=== PATIENT | female | born 1950 | race Caucasian/White ===

== ENCOUNTER 2017-12-02 17:50 | Emergency (ER) | payer MEDICARE, SELFPAY ==
[2017-12-02 17:50] VITALS: BP 158/94; PULSE 85; RESP 20; TEMP 36.4; O2SAT 100; BMI 27.4
[2017-12-02 20:00] VITALS: BP 171/90; PULSE 72; RESP 14; O2SAT 98
--- NOTE | 2017-12-02 20:13 | ED.WEAKNESS ---
HPI - Weakness General Chief complaint: Weakness Stated complaint: WEAK AND UNABLE TO GET UPSTAIRS Time Seen by Provider: 12/02/17 19:48 Source: patient Mode of arrival: ambulatory Limitations: no limitations History of Present Illness HPI Narrative: Patient is a 67-year-old female. Just flew in from [place] to the local area and is living with friends. She states she moved to this area from [place] because she ?could not stand the [place] any longer ?up there. She has not have a primary care doctor in this area. At baseline she uses a walker at home and a cane. She states when she got to this area the house where she was staying head stairs and she had very difficult to getting into the house. She states that her lower extremities have become more weak over the past day. She came into the emergency department for evaluation. Related Data Allergies Allergy/AdvReac Type Severity Reaction Status Date / Time nalidixic acid [From NegGram] Allergy Verified 12/02/17 21:45 Penicillins Allergy Hives Verified 12/02/17 21:45 Sulfa (Sulfonamide Allergy Verified 12/02/17 21:45 Antibiotics) Review of Systems Constitutional Denies chills and Denies fever(s) ENT Ears, Nose, Mouth, and Throat: Denies dizziness and Denies disequilibrium Cardiovascular Denies chest pain and Denies dyspnea Respiratory Denies dyspnea Gastrointestinal Gastrointestinal: Denies abdominal pain, Denies nausea and Denies vomiting Genitourinary Denies dysuria Musculoskeletal Denies numbness Comments: Bilateral lower extremity with left greater than right weakness Integumentary/Breasts Denies lesions and Denies rash Neurologic Denies dizziness, Denies focal weakness, Denies numbness and Denies disequilibrium Hematologic/Lymphatic Denies easy bleeding and Denies easy bruising [facility] Medical History Healthy adult (Acute) Surgical History No pertinent past surgical history (Acute) Social History Smoking Status: Never smoker Exam Initial Vital Signs Initial Vital Signs: Vital Signs Temperature 97.5 F L 12/02/17 17:50 Pulse Rate 85 12/02/17 17:50 Respiratory Rate 20 12/02/17 17:50 Blood Pressure 158/94 H 12/02/17 17:50 Pulse Oximetry 100 12/02/17 17:50 Const General: cooperative, comfortable, well developed, well groomed and No acute distress Orientation: alert, awake and oriented x3 HENMT Head: normal to inspection and normocephalic Resp Effort & Inspection: normal respiratory effort Auscultation: clear to auscultation bilaterally Cardio Rate: regular rate Rhythm: regular rhythm Heart Sounds: no murmurs Pulses: radial pulses present GI Inspection: normal to inspection and non-distended Palpation: soft, No firm and No tender Back/Spine/Pelvis Back: normal to inspection and No CVA tenderness Skin Lesions: no lesions Rashes: no rashes Neuro General: alert, awake and oriented x3 Cognition: normal cognition Speech: speech normal Sensory Exam: no sensory deficits noted Extrem General: normal to inspection and full ROM Other: Left ankle swollen however the patient states this is not new Psych Appearance: grossly normal and well kempt Course Orders Ordered: ED Orders 12/02/17 20:14 EKG-12 Lead Stat 12/02/17 20:52 B Type Natriuretic Peptide Stat Basic Metabolic Panel Stat Complete Blood Count AUTO DIFF Stat Troponin I Stat Discontinued Medications Acetaminophen (Tylenol) 650 mg PO NOW ONE Stop: 12/02/17 21:46 Last Admin: 12/02/17 22:04 Dose: 650 mg Potassium Chloride (Potassium Chloride) 40 meq PO NOW ONE Stop: 12/02/17 21:23 Last Admin: 12/02/17 21:36 Dose: 40 meq Vital Signs - 8 hr 12/02/17 20:00 12/02/17 21:05 Pulse Rate 72 89 Respiratory Rate 14 18 Blood Pressure [Right Arm] 171/90 H 188/94 H Pulse Oximetry 98 99 MDM - Weakness Lab Data Attestation: I reviewed the patient's lab results. Result diagrams: 12/02/17 20:52 12/02/17 20:52 Lab Results 12/02/17 12/02/17 Range/Units 20:52 20:52 WBC 3.8 L (4.5-11.0) X10^3/uL RBC 4.10 (4.0-5.2) X10^6/uL Hgb 13.8 (12.0-16.0) g/dL Hct 39.2 (36-46) % MCV 95.7 (80-100) fL MCH 33.7 (26-34) PG MCHC 35.3 (30-36) % RDW 15.2 H (11.6-14.8) % Plt Count 214 (150-400) X10^3/uL Neut % (Auto) 57.1 (50-75) % Lymph % (Auto) 36.4 (25-40) % Daniels % (Auto) 5.8 (3-14) % Eos % (Auto) 0.3 L (2-4) % Baso % (Auto) 0.4 (0-2) % Neut # (Auto) 2200 L (5735-5530) /uL Sodium 140 (137-145) mmol/L Potassium 2.8 L (3.4-5.1) mmol/L Chloride 97 L (98-107) mmol/L Carbon Dioxide 33 H (22-32) mmol/L BUN 15 (7-17) mg/dL Creatinine 0.50 L (0.52-1.04) mg/dL Estimated GFR > 60.0 (>60) mL/min BUN/Creatinine Ratio 30.0 H (6-22) Glucose 241 H (80-110) mg/dL Calcium 10.5 H (8.4-10.2) mg/dL Troponin I < 0.012 (0.01-0.034) ng/mL B-Natriuretic Peptide 36.0 (<100) ECG Data Attestation: I personally reviewed and interpreted this ECG as follows: Prior ECG tracings: not available for review Interpretation: Sinus rhythm Ventricular rate is 72 Normal axis Normal QRS Normal QTC No ST T wave changes MDM Narrative Medical decision making narrative: Patient was mildly hypokalemic she was given oral potassium here in the emergency department. Patient was mildly more weak in the left lower extremity compared to the right. At baseline she states she uses a walker at home. She was able to stand at bedside and take a couple steps with assistance. EKG is unremarkable. Labs unremarkable except for the hypokalemic which was replaced here in the ER. I do not have a reason to admit the patient to the hospital. No emergent condition was found. Informed the patient that just because she could not climb steps to get into the house where she was staying was not a reason to admit her to the hospital. She was given resources regarding social resources in the local area. Patient seemed unhappy about this decision stating that she had no place to stay. She states that the individuals that she was staying with told her that she could not stay there anymore because there was concern about her climbing the stairs. Again I informed her that this was not a reason that I could admit her to the hospital. Patient expressed understanding. She did leave the emergency department by taxi. She was told that she could return to the emergency department if she needed to. Discharge Plan Departure Patient Disposition: Home Clinical Impression: Weakness, Acute hypokalemia Discharge Date/Time: 12/03/17 00:10 Interventions: ED Discharge Assessment Last Done: 12/03/17 00:09 Instructions: DI for Hypokalemia, DI for Muscle Weakness Activity Restrictions/Additional Instructions: No emergent condition was found on your workup today. Unfortunately we do not have a reason to admit you to the hospital. A message was left for our social workers here at the hospital to call you on Monday to help with your living situation. Return to the emergency department for any new or worsening symptoms
--- NOTE | 2017-12-02 20:16 | PC.NURSE ---
Pt has chronic lower leg neuropathy. Hx of diabetes, type 2. she recently moved here from [place] and is staying with friends, but she is unable to get into and out of her house due to steps. States her friends are too weak to help her. It is both painful and difficult due to weakness to ambulate. Pain is at baseline level, weakness is worse today. Denies other symptoms.
[2017-12-02 21:04] LABS: Add Manual Diff / Slide Review NO; Basophils Percent Auto 0.4 % (0-2); Eosinophils Percent Auto 0.3 % (2-4); Hematocrit 39.2 % (36-46); Hemoglobin 13.8 g/dL (12.0-16.0); Lymphocytes Percent Auto 36.4 % (25-40); Mean Corpuscular HGB Conc 35.3 % (30-36); Mean Corpuscular Hemoglobin 33.7 PG (26-34); Mean Corpuscular Volume 95.7 fL (80-100); Monocytes Percent Auto 5.8 % (3-14); Neutrophils Absolute Auto 2200 /uL (3000-5900); Neutrophils Percent Auto 57.1 % (50-75); Platelet Count 214 X10^3/uL (150-400); Red Cell Distribution Width 15.2 % (11.6-14.8); White Blood Cell Count 3.8 X10^3/uL (4.5-11.0)
[2017-12-02 21:05] VITALS: BP 188/94; PULSE 89; RESP 18; O2SAT 99
[2017-12-02 21:10] LABS: Blood Urea Nitrogen 15 mg/dL (7-17); Calcium 10.5 mg/dL (8.4-10.2); Carbon Dioxide 33 mmol/L (22-32); Chloride 97 mmol/L (98-107); Estimated Glomerular Filt Rate > 60.0 mL/min (>60); Glucose 241 mg/dL (80-110); HEMOLYSIS < 15 (0-50); Potassium 2.8 mmol/L (3.4-5.1); Sodium 140 mmol/L (137-145)
[2017-12-02 21:32] LABS: Troponin I < 0.012 ng/mL (0.01-0.034)
[2017-12-02] MEDS: POTASSIUM CHLORIDE 20 MEQ/15 ML UDC 40 MEQ PO (21:36)
[2017-12-02] MEDS: ACETAMINOPHEN 325 MG TABLET 650 MG PO (22:04)
--- NOTE | 2017-12-03 00:06 | PC.NURSE ---
asked to mildred pt. gave paperwork, she signed, stated we needed to provide a ride for her, her friends denied a picking crew supervisor for her. she states she has no money, just moved here from [place]. senior resource booklet given to her, room very messy from her eating and drinking in the room, she wanted extra diapers and boiler cleaner for her. she states if she gets to the home she is staying at she has friends that are there and her car is there as well. taxi ride to [facility] for her/ hospital to pay to assist her discharge.
--- NOTE | 2017-12-15 15:25 | CM.SWNOTE ---
ED ERGONOMIC SPECIALIST Note: SUPERVISOR COATING received a note and facesheet in my box requesting that I call this pt. There evidently was a concern that pt might benefit from additional resources as she was low-income and in need of housing. I reviewed chart and called pt, prepared to provide her with a list of services in [facility] that might be of help, but there was no answer. Left a message on VM identifying who I was and that if I could be of help to her, to call the Emergency Room on or Monday afternoon. If I do not hear back, I will keep the information in my mail box and call her again next week. Thank you Jessica Mattson SUPERVISOR COATING
--- NOTE | 2017-12-20 14:44 | CM.SWNOTE ---
Addendum entered by DAVON Box 12/20/17 15:45: Pt returned call from ED WEIGHT CALLER today. She stated that [place] [address] [place] Reviewed a variety of sr. social media & mobile manager, but pt is aware of all and has been in touch with them. [facility] is not an option as pt is unable to navigate stairs. She is workign with a SW from [facility] and another person at [facility] are trying to help her to find housing. Pt is able to get a hot meal through [facility] and a brown bag daily through another program so gets at least 2 meals per day. Pt seems to be well connected at this time and there were no other options that ED WEIGHT CALLER had to offer. Pt was appreciative of the outreach call. Thank you LUCA Box Original Note: ED WEIGHT CALLER Tried a second time to contact pt to see if I could be of help. A message was left last week with my name and contact information. I had been asked to contact her to see if she was in need of additional resources. Will try one more time this week. LUCA Box
== END 2017-12-03 00:10 | disposition home or self-care (01) ==
PROVIDERS: Emergency Provider Emergency Medicine
DX: E87.6 Hypokalemia (principal); R53.1 Weakness
CPT/HCPCS: 36591; 80048; 83880; 84484; 85025; 93005; 99282; 99284

== ENCOUNTER → 2018-01-19 07:11 | Outpatient (REF) | payer SELFPAY ==
[2018-01-19 08:13] LABS: Add Manual Diff / Slide Review NO; Basophils Percent Auto 0.5 % (0-2); Eosinophils Percent Auto 0.5 % (2-4); Hematocrit 37.8 % (36-46); Lymphocytes Percent Auto 44.9 % (25-40); Mean Corpuscular HGB Conc 34.4 % (30-36); Mean Corpuscular Hemoglobin 32.7 PG (26-34); Mean Corpuscular Volume 95.1 fL (80-100); Monocytes Percent Auto 5.6 % (3-14); Neutrophils Absolute Auto 1500 /uL (3000-5900); Neutrophils Percent Auto 48.5 % (50-75); Platelet Count 217 X10^3/uL (150-400); Red Blood Cell Count 3.98 X10^6/uL (4.0-5.2); Red Cell Distribution Width 14.6 % (11.6-14.8)
== END ==
LOC: LAB 07:11
PROVIDERS: Visit Provider Hospitalist
DX: D70.9 Neutropenia, unspecified (principal)
CPT/HCPCS: 36415; 85025

== ENCOUNTER → 2018-02-23 13:03 | Outpatient (CLI) | payer MEDICARE, MEDICAID, SELFPAY ==
--- NOTE | 2018-02-23 | DI.MRI.S_ITS ---
PROCEDURE: MR HEAD/BRAIN WO/W CON INDICATIONS: Weakness TECHNIQUE: Noncontrast axial T1 spin echo, axial T2 fast spin echo, sagittal and axial FLAIR, coronal T2 fast spin echo, axial gradient echo, axial diffusion and ADC through the brain. After the administration of contrast, axial and coronal T1 spin echo with fat saturation through the brain. COMPARISON: [facility], MR, MR LUMBAR SPINE WO/W CON, 02/23/2018, 13:31. [facility], MR, MR THORACIC SPINE WO/W CON, 02/23/2018, 13:31. [facility], MR, MR CERVICAL SPINE WO/W CON, 02/23/2018, 13:31. FINDINGS: Image quality: Diagnostic, with note made of motion artifact. CSF spaces: Basal cisterns are patent. No extra-axial fluid collections. Ventricles are normal in size and shape. Brain: No midline shift. No intracranial bleeds or masses. No abnormal intracranial enhancement. There is cerebral volume loss for age. There is periventricular white matter chronic small vessel ischemic change. The brainstem appears normal. Diffusion-weighted images demonstrate no acute ischemic insults. No chronic ischemic insults. Normal intravascular flow voids are present. Skull and face: Calvarial marrow is normal in signal. Orbits appear normal. Sinuses: No significant paranasal sinus abnormality is seen. Of IMPRESSION: No findings of acute or subacute infarction can be seen. No masses or abnormal enhancement can be seen. Note is made of age-appropriate brain parenchymal volume loss and chronic small vessel ischemic changes. Dictated by: Kade Means M.D. on 02/23/2018 at 15:00 Approved by: Kade Means M.D. on 02/23/2018 at 15:01
--- NOTE | 2018-02-23 | DI.MRI.S_ITS ---
PROCEDURE: MR LUMBAR SPINE WO/W CON INDICATIONS: Weakness TECHNIQUE: Noncontrast sagittal T1 spin echo and T2 fast spin echo, sagittal STIR, axial T1 and T2 fast spin echo through the lumbar spine. In cases with scoliosis, additional coronal T2 fast spin echo may be performed. After the administration of contrast, sagittal and axial T1 spin echo with fat saturation through the lumbar spine. COMPARISON: [facility], MR, MR HEAD/BRAIN WO/W CON, 02/23/2018, 13:31. [facility], MR, MR THORACIC SPINE WO/W CON, 02/23/2018, 13:31. [facility], MR, MR CERVICAL SPINE WO/W CON, 02/23/2018, 13:31. FINDINGS: Image quality: This examination is limited by involuntary motion artifact. Alignment and curvature: Levoconvex lumbar scoliotic curvature is seen. Marrow: Marrow is of normal overall signal. No acute vertebral body compression fractures. No suspicious marrow enhancement. Spinal cord: Conus medullaris terminates at the L1 level. Visualized spinal cord demonstrates normal signal, without suspicious enhancement. Paraspinous soft tissues: No paravertebral masses or abnormal enhancement. T12-L1: Normal appearance. L1-L2: Normal appearance. L2-L3: No significant abnormality is seen. L3-L4: Mild loss of disc height is seen. Loss of disc signal is seen. Mild generalized disc bulge is seen. Mild facet joint hypertrophy is seen. There is mild right-sided and no significant left-sided neural foraminal narrowing seen. No significant central canal narrowing is seen. L4-L5: The disc height is well-preserved. Loss of disc signal is seen at this level. Moderate disc bulge is seen, which is eccentric to the right. Mild bilateral neural foraminal narrowing is seen at this level. Moderate facet joint hypertrophy is seen. Mild to moderate central canal narrowing is seen. L5-S1: The disc height is well-preserved. Loss of disc signal is seen at this level. Mild generalized disc bulge is seen. Moderate facet joint hypertrophy is seen. No significant neural foraminal or central canal narrowing can be seen. IMPRESSION: Lower lumbar spine degenerative changes are seen. No abnormal enhancement can be seen. Levoconvex lumbar scoliotic curvature. Dictated by: Kade Means M.D. on 02/23/2018 at 15:12 Approved by: Kade Means M.D. on 02/23/2018 at 15:16
--- NOTE | 2018-02-23 | DI.MRI.S_ITS ---
PROCEDURE: MR CERVICAL SPINE WO/W CON INDICATIONS: Weakness TECHNIQUE: Noncontrast sagittal T1 spin echo and T2 fast spin echo, sagittal STIR, foraminal oblique sagittal T2 fast spin echo, axial gradient echo or T2 fast spin echo through the cervical spine. After the administration of contrast, axial and sagittal T1 spin echo with fat saturation through the cervical spine. COMPARISON: [facility], MR, MR LUMBAR SPINE WO/W CON, 02/23/2018, 13:31. [facility], MR, MR THORACIC SPINE WO/W CON, 02/23/2018, 13:31. [facility], MR, MR HEAD/BRAIN WO/W CON, 02/23/2018, 13:31. FINDINGS: Image quality: This examination is limited by involuntary motion artifact. Alignment and curvature: Mild grade 1 anterolisthesis is seen at the C7-T1 level. Marrow: Marrow is normal in overall signal, without suspicious enhancement. Spinal cord: Visualized spinal cord has normal size and signal. No cerebellar tonsillar herniation. No abnormal intramedullary enhancement. Paraspinous soft tissues: No paravertebral masses or suspicious enhancement. C2-3: The disc height is well-preserved. Loss of disc signal is seen at this level. Mild to moderate disc osteophyte complex is seen. [id number] bilateral neural foraminal narrowing is seen. There is moderate left-sided and mild right-sided neural foraminal narrowing seen. Minimal to mild central canal narrowing is seen. C3-4: The disc height is well-preserved. Loss of disc signal is seen at this level. Mild to moderate disc osteophyte complex is seen, which is eccentric to the left. There is mild right-sided and moderate left-sided facet hypertrophy seen. There is moderate right-sided and moderate to severe left-sided neural foraminal narrowing. Moderate central canal narrowing is seen. C4-5: Moderate loss of disc height and disc signal are seen. Moderate disc osteophyte complex is seen. There is mild right-sided and prominent left-sided facet hypertrophy seen. There is moderate to severe bilateral neural foraminal narrowing seen at this level. At least moderate central canal narrowing is seen, with associated mass effect upon the ventral spinal cord. C5-6: At least moderate loss of disc height is seen. Moderate to prominent disc osteophyte complex is seen, which is eccentric to the right. Uncovertebral joint hypertrophy is seen at this level. Mild to moderate facet hypertrophy is seen. There is moderate to severe bilateral neural foraminal narrowing seen, right worse than left. Moderate to severe central canal narrowing is seen, with associated mass effect upon the spinal cord ventrally. C6-7: The disc height is well-preserved. Loss of disc signal is seen at this level. Mild to moderate disc osteophyte complex is seen. There is moderate right-sided and mild to moderate left-sided neural foraminal narrowing seen. Mild central canal narrowing is seen. C7-T1: Mild grade 1 anterolisthesis is seen at this level. Mild to moderate loss of disc height and disc signal are seen. Moderate disc bulge is seen, which is eccentric to the right. There is moderate to severe bilateral neural foraminal narrowing seen. Mild central canal narrowing is seen. IMPRESSION: Multiple levels of cervical spine degenerative change are seen, which are overall most prominent at the C5-C6 level. No abnormal enhancement can be seen. Dictated by: Kade Means M.D. on 02/23/2018 at 15:02 Approved by: Kade Means M.D. on 02/23/2018 at 15:07
--- NOTE | 2018-02-23 | DI.MRI.S_ITS ---
PROCEDURE: MR THORACIC SPINE WO/W CON INDICATIONS: Weakness TECHNIQUE: Noncontrast sagittal T1 spin echo and T2 fast spin echo, sagittal STIR, axial T1 and T2 fast spin echo through the thoracic spine. After the administration of contrast, axial and sagittal T1 spin echo with fat saturation through the thoracic spine. COMPARISON: [facility], MR, MR HEAD/BRAIN WO/W CON, 02/23/2018, 13:31. [facility], MR, MR LUMBAR SPINE WO/W CON, 02/23/2018, 13:31. [facility], MR, MR CERVICAL SPINE WO/W CON, 02/23/2018, 13:31. FINDINGS: Image quality: This examination is limited by involuntary motion artifact. Alignment and curvature: S-shaped scoliotic curvature is seen. Marrow: Marrow is of normal overall signal. No acute vertebral body compression fractures. Spinal cord: Visualized spinal cord is of normal signal and size, without abnormal enhancement. Paraspinous soft tissues: No paravertebral masses or abnormal enhancement. Miscellaneous: Mild degenerative changes are seen, particularly involving the mid thoracic spine, with mild loss of disc height and endplate irregularity. No significant level of neural foraminal or central canal narrowing can be seen. No abnormal enhancement. IMPRESSION: S-shaped scoliosis. Age-appropriate degenerative changes. No significant level of central canal or neural foraminal narrowing can be seen. No abnormal enhancement. Dictated by: Kade Means M.D. on 02/23/2018 at 15:10 Approved by: Kade Means M.D. on 02/23/2018 at 15:12
== END ==
PROVIDERS: Visit Provider Nurse Practitioner Family
DX: R53.1 Weakness (principal); M47.812 Spondylosis without myelopathy or radiculopathy, cervical region; M47.814 Spondylosis without myelopathy or radiculopathy, thoracic region; M47.816 Spondylosis without myelopathy or radiculopathy, lumbar region; M41.9 Scoliosis, unspecified; E11.40 Type 2 diabetes mellitus with diabetic neuropathy, unspecified; H53.40 Unspecified visual field defects; R29.898 Other symptoms and signs involving the musculoskeletal system; L29.8 Other pruritus; I10 Essential (primary) hypertension; E87.6 Hypokalemia
CPT/HCPCS: 70553; 72156; 72157; 72158; A9579; Q9967

== ENCOUNTER → 2018-03-23 07:45 | Outpatient (REF) | payer MEDICARE, SELFPAY ==
[2018-03-23 08:56] LABS: Hemoglobin A1C% w Est Avg Glu 7.1 % (4.0-6.0)
== END ==
LOC: LAB 07:45
PROVIDERS: Visit Provider Nurse Practitioner Family
DX: N39.0 Urinary tract infection, site not specified (principal)
CPT/HCPCS: 36415; 83036

== ENCOUNTER → 2018-04-27 10:36 | Outpatient (REF) | payer MEDICARE, SELFPAY ==
[2018-04-27 10:50] LABS: Alanine Aminotransferase 25 IU/L (9-52); Albumin 4.2 g/dL (3.5-5.0); Albumin Globulin Ratio 1.6 (1.0-2.8); Alkaline Phosphatase 63 U/L (38-126); Aspartate Aminotransferase 21 IU/L (14-36); Bilirubin Total 1.6 mg/dL (0.2-1.3); Blood Urea Nitrogen 11 mg/dL (7-17); Calcium 10.7 mg/dL (8.4-10.2); Carbon Dioxide 24 mmol/L (22-32); Chloride 98 mmol/L (98-107); Estimated Glomerular Filt Rate > 60.0 mL/min (>60); Globulin 2.7 g/dL (1.7-4.1); Glucose 225 mg/dL (80-110); HEMOLYSIS < 15 (0-50); Potassium 3.8 mmol/L (3.4-5.1); Sodium 135 mmol/L (137-145); Total Protein 6.9 g/dL (6.3-8.2)
[2018-04-27 10:53] LABS: Add Manual Diff / Slide Review NO; Basophils Absolute Auto 0 /uL (0-100); Basophils Percent Auto 0.4 % (0-2); Eosinophils Absolute Auto 0 /uL (0-450); Eosinophils Percent Auto 0.2 % (2-4); Hematocrit 41.8 % (36-46); Hemoglobin 14.5 g/dL (12.0-16.0); Lymphocytes Absolute Auto 1400 /uL (1100-4500); Lymphocytes Percent Auto 31.9 % (25-40); Mean Corpuscular HGB Conc 34.7 % (30-36); Mean Corpuscular Volume 95.1 fL (80-100); Monocytes Absolute Auto 200 /uL (0-900); Monocytes Percent Auto 5.4 % (3-14); Neutrophils Absolute Auto 2700 /uL (1500-7000); Neutrophils Percent Auto 62.1 % (50-75); Platelet Count 237 X10^3/uL (150-400); White Blood Cell Count 4.4 X10^3/uL (4.5-11.0)
[2018-04-27 11:07] LABS: Hemoglobin A1C% w Est Avg Glu 6.4 % (4.0-6.0)
== END ==
LOC: LAB 10:36
PROVIDERS: Visit Provider Registered Nurse
DX: E11.21 Type 2 diabetes mellitus with diabetic nephropathy (principal)
CPT/HCPCS: 80053; 83036; 85025

== ENCOUNTER → 2018-05-01 10:32 | Outpatient (REF) | payer MEDICARE, SELFPAY ==
[2018-05-01 11:35] LABS: Blood Urea Nitrogen 9 mg/dL (7-17); Calcium 10.3 mg/dL (8.4-10.2); Carbon Dioxide 31 mmol/L (22-32); Chloride 98 mmol/L (98-107); Estimated Glomerular Filt Rate > 60.0 mL/min (>60); Glucose 182 mg/dL (80-110); HEMOLYSIS < 15 (0-50); Potassium 4.1 mmol/L (3.4-5.1); Sodium 137 mmol/L (137-145)
== END ==
LOC: LAB 10:32
PROVIDERS: Visit Provider Internal Medicine
DX: E11.9 Type 2 diabetes mellitus without complications (principal)
CPT/HCPCS: 36415; 80048

== ENCOUNTER → 2018-05-11 12:34 | Outpatient (CLI) | payer MEDICARE, MEDICAID, SELFPAY ==
--- NOTE | 2018-05-11 | DI.ECHO.S_ITS ---
[facility]---------+ [facility] +---------+ : : [address] : : : : [id number] : : : : Phone: [phone] Echocardiogram Report + + :Name: PHILOMENA LOERA Study Date: 05/11/2018 Height: 62 in : :[facility] Weight: 146 lb : : Gender: Female BSA: 1.7 m2 : :: 1950 Age: 68 yrs BP: 110/70 mmHg: :Reason For Study: Murmur : : Performed By: Valerie Mohan : :Referring: LACEY LYONS : + + Interpretation Summary The LVOT velocity is 2.15 m/s. The left ventricular outflow velocity with valsalva is 3m/sec, consistent with pressure gradent of 37 mmHg.. 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 Pulmonary artery pressures cannot be estimated because of the lack of a measurable TR jet velocity but the IVC suggests a CVP of around 3 mmHg. There is no prior echocardiogram noted for this patient. Procedure: A two-dimensional transthoracic echocardiogram with color flow and Doppler was performed. There is no prior echocardiogram noted for this patient. The study quality was technically difficult. The patient was in normal sinus rhythm during the exam. Left Ventricle: Left ventricular wall thickness is mildly increased. The left ventricular outflow velocity with valsalva is 3m/sec, consistent with pressure gradent of 37 mmHg.. The LVOT velocity is 2.15 m/s. 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 Proximal septal thickening is noted. The ejection fraction is estimated to be 65-70%. Diastolic parameters suggest a relaxation abnormality of the left ventricle, consistent with probable normal filling pressures. Right Ventricle: The right ventricle grossly appears normal in size with probable normal systolic function. Atria: Borderline left atrial enlargement. Right atrial size is normal. There is no Doppler evidence for an interatrial shunt. Mitral Valve: The mitral valve leaflets appear borderline thickened, but open well. There is mild mitral annular calcification. There is trace mitral regurgitation. Aortic Valve: The aortic valve opens well. There is mild aortic valve sclerosis. No aortic regurgitation is present. Tricuspid Valve: The tricuspid valve is normal in structure and function. No tricuspid regurgitation. Pulmonary artery pressures cannot be estimated because of the lack of a measurable TR jet velocity but the IVC suggests a CVP of around 3 mmHg. Pulmonic Valve: The pulmonic valve is not well seen, but is grossly normal. There is trace pulmonic regurgitation. Great Vessels: The aortic root is normal size. The ascending aorta could not be visualized. The aortic arch is normal in size. The IVC is of normal diameter and collapses greater than 50% with a sniff. This suggests a low right atrial pressure of 3 mm Hg. Pericardium/ Pleura There is no pericardial effusion. There is no pleural effusion. MMode/2D Measurements & Calculations LVIDd: 3.5 cm Ao root diam: 2.9 cm LVIDs: 1.8 cm Aortic Jxn: 2.5 cm FS: 47.1 % Ao Arch Diam (Prox Trans): 2.6 cm EPSS: 0.28 cm IVSd: 1.1 cm LVPWd: 0.87 cm LV ruth. diameter/BSA (cm/m^2): 2.1 LV sys. diameter/BSA (cm/m^2): 1.1 LA dimension: 3.5 cm RA long axis: 4.0 cm LA A2 area: 21.0 cm2 RA area: 11.2 cm2 LA A4 area: 16.8 cm2 RA vol: 26.1 ml LA length (vol): 4.9 cm RA : 15.6 ml/m2 LA vol: 61.0 ml IVC diam: 1.9 cm LA vol index: 36.5 ml/m2 RVDd major: 3.8 cm RVD1 (basal): 2.4 cm RVD2 (mid): 2.0 cm Doppler Measurements & Calculations Ao V2 max: 134.4 cm/sec MV E max tenzin: 67.1 cm/sec Ao V2 mean: 85.2 cm/sec MV A max tenzin: 109.3 cm/sec Ao max P.2 mmHg MV E/A: 0.61 Ao mean P.4 mmHg Med Peak E' Tenzin: 5.6 cm/sec Ao V2 VTI: 21.7 cm E/E' med: 12.0 Lat Peak E' Tenzin: 4.8 cm/sec E/E' lat: 13.9 E/e' average: 12.9 MV dec time: 0.23 sec MV P1/2t: 67.6 msec PA V2 max: 85.5 cm/sec MV V2 mean: 55.3 cm/sec PA V2 mean: 52.5 cm/sec MV mean P.6 mmHg PA mean P.4 mmHg MV V2 VTI: 20.2 cm PA Accel Time: 0.17 sec MV P1/2t max tenzin: 66.7 cm/sec MVA(P12t): 3.3 cm2 Electronically signed by: Lacey Lyons M.D. on Reading Physician:05/13/2018 06:19 PM
== END ==
PROVIDERS: Visit Provider Hospitalist
DX: R01.1 Cardiac murmur, unspecified (principal)
CPT/HCPCS: 93306

== ENCOUNTER → 2018-05-15 07:16 | Outpatient (REF) | payer MEDICARE, MEDICAID, SELFPAY | LOC: LAB 07:16 | PROVIDERS: Visit Provider Internal Medicine | DX: E80.6 Other disorders of bilirubin metabolism (principal) | CPT/HCPCS: 36415; 82247 ==

== ENCOUNTER → 2018-05-26 12:36 | Outpatient (REF) | payer MEDICARE, MEDICAID, SELFPAY ==
[2018-05-26 15:56] LABS: Adenovirus F 40/41 Not Detected (Not Detect); Campylobacter Not Detected (Not Detect); Clostridium difficile toxin AB Not Detected (Not Detect); Cryptosporidium Not Detected (Not Detect); Cyclospora cayetanensis Not Detected (Not Detect); Entamoeba histolytica Not Detected (Not Detect); Enteroaggregative E.coli Not Detected (Not Detect); Enteropathogenic E.coli Not Detected (Not Detect); Enterotoxigenic E.coli It/st Not Detected (Not Detect); Giardia lamblia Not Detected (Not Detect); Plesiomonsa shigelloides Not Detected (Not Detect); Salmonella Not Detected (Not Detect); Shiga-like toxin-prod E.coli Not Detected (Not Detect); Shigella/Enteroinvasive E.coli Not Detected (Not Detect); Vibrio Not Detected (Not Detect); Vibrio cholerae Not Detected (Not Detect); Yersinia enterocolitica Not Detected (Not Detect)
[2018-05-26 15:57] LABS: Astrovirus Not Detected (Not Detect); Norovirus GI/GII Not Detected (Not Detect); Rotavirus A Not Detected (Not Detect); Sapovirus Not Detected (Not Detect)
== END ==
LOC: LAB 12:36
PROVIDERS: Visit Provider Internal Medicine
DX: R19.7 Diarrhea, unspecified (principal)
CPT/HCPCS: 87507

== ENCOUNTER → 2018-06-28 07:13 | Outpatient (REF) | payer MEDICARE, MEDICAID, SELFPAY ==
[2018-06-28 07:48] LABS: Hemoglobin A1C% w Est Avg Glu 5.2 % (4.0-6.0)
[2018-06-28 07:51] LABS: Add Manual Diff / Slide Review NO; Basophils Absolute Auto 0 /uL (0-100); Basophils Percent Auto 0.3 % (0-2); Eosinophils Absolute Auto 0 /uL (0-450); Eosinophils Percent Auto 0.4 % (2-4); Hematocrit 44.9 % (36-46); Hemoglobin 16.1 g/dL (12.0-16.0); Lymphocytes Absolute Auto 2200 /uL (1100-4500); Lymphocytes Percent Auto 34.9 % (25-40); Mean Corpuscular Hemoglobin 31.9 PG (26-34); Mean Corpuscular Volume 88.8 fL (80-100); Monocytes Absolute Auto 500 /uL (0-900); Monocytes Percent Auto 8.5 % (3-14); Neutrophils Absolute Auto 3500 /uL (1500-7000); Neutrophils Percent Auto 55.9 % (50-75); Platelet Count 260 X10^3/uL (150-400); Red Blood Cell Count 5.05 X10^6/uL (4.0-5.2); Red Cell Distribution Width 12.8 % (11.6-14.8); White Blood Cell Count 6.3 X10^3/uL (4.5-11.0)
[2018-06-28 07:53] LABS: Alanine Aminotransferase 20 IU/L (9-52); Albumin 4.2 g/dL (3.5-5.0); Albumin Globulin Ratio 1.3 (1.0-2.8); Alkaline Phosphatase 69 U/L (38-126); Aspartate Aminotransferase 20 IU/L (14-36); Blood Urea Nitrogen 11 mg/dL (7-17); Calcium 10.6 mg/dL (8.4-10.2); Carbon Dioxide 31 mmol/L (22-32); Chloride 93 mmol/L (98-107); Cholesterol 152 mg/dL (140-199); Estimated Glomerular Filt Rate > 60.0 mL/min (>60); Globulin 3.2 g/dL (1.7-4.1); Glucose 100 mg/dL (80-110); HDL Cholesterol 44 mg/dL (40-60); HEMOLYSIS < 15 (0-50); LDL Cholesterol Calculated 84 mg/dL (<100); Sodium 135 mmol/L (137-145); Total Protein 7.4 g/dL (6.3-8.2); Triglycerides 121 mg/dL (35-150)
[2018-06-28 08:27] LABS: Potassium 2.4 mmol/L (3.4-5.1)
== END ==
LOC: LAB 07:13
PROVIDERS: Visit Provider Internal Medicine
DX: C22.4 Other sarcomas of liver (principal)
CPT/HCPCS: 36415; 80053; 80061; 83036; 85025

== ENCOUNTER → 2018-06-29 14:54 | Outpatient (REF) | payer MEDICARE, MEDICAID, SELFPAY ==
[2018-06-29 15:14] LABS: Alanine Aminotransferase 24 IU/L (9-52); Albumin 4.1 g/dL (3.5-5.0); Albumin Globulin Ratio 1.4 (1.0-2.8); Alkaline Phosphatase 63 U/L (38-126); Aspartate Aminotransferase 25 IU/L (14-36); Bilirubin Total 1.6 mg/dL (0.2-1.3); Blood Urea Nitrogen 12 mg/dL (7-17); Calcium 10.7 mg/dL (8.4-10.2); Carbon Dioxide 31 mmol/L (22-32); Chloride 92 mmol/L (98-107); Estimated Glomerular Filt Rate > 60.0 mL/min (>60); Globulin 2.9 g/dL (1.7-4.1); Glucose 95 mg/dL (80-110); HEMOLYSIS 35 (0-50); Lipase 157 U/L (23-300); Potassium 4.3 mmol/L (3.4-5.1); Sodium 133 mmol/L (137-145)
[2018-06-29 15:17] LABS: Amylase < 30 U/L (30-110)
== END ==
LOC: LAB 14:54
PROVIDERS: Visit Provider Registered Nurse
DX: R10.9 Unspecified abdominal pain (principal); R11.0 Nausea; R41.0 Disorientation, unspecified; E80.7 Disorder of bilirubin metabolism, unspecified
CPT/HCPCS: 80053; 82140; 82150; 83690; 85610

== ENCOUNTER → 2018-06-30 14:01 | Outpatient (REF) | payer MEDICARE, MEDICAID, SELFPAY ==
[2018-06-30 14:11] LABS: Magnesium 2.2 mg/dL (1.6-2.3)
== END ==
LOC: LAB 14:01
PROVIDERS: Visit Provider Nurse Practitioner Family
DX: E87.6 Hypokalemia (principal)
CPT/HCPCS: 83735

== ENCOUNTER → 2018-07-03 08:18 | Outpatient (REF) | payer MEDICARE, MEDICAID, SELFPAY ==
[2018-07-03 09:06] LABS: HEMOLYSIS < 15 (0-50); Potassium 5.1 mmol/L (3.4-5.1)
[2018-07-03 10:03] LABS: Hemoglobin A1C% w Est Avg Glu 5.3 % (4.0-6.0)
== END ==
LOC: LAB 08:18
PROVIDERS: Nurse Practitioner Family; Visit Provider Registered Nurse
DX: E11.9 Type 2 diabetes mellitus without complications (principal); E87.6 Hypokalemia
CPT/HCPCS: 36415; 83036; 84132

== ENCOUNTER → 2018-07-05 16:01 | Outpatient (REF) | payer MEDICARE, MEDICAID, SELFPAY ==
[2018-07-05 16:25] LABS: HEMOLYSIS < 15 (0-50); Potassium 4.1 mmol/L (3.4-5.1)
== END ==
LOC: LAB 16:01
PROVIDERS: Visit Provider Registered Nurse
DX: E87.5 Hyperkalemia (principal)
CPT/HCPCS: 84132

== ENCOUNTER → 2018-07-24 09:42 | Outpatient (ROUT) | payer MEDICARE, MEDICAID, SELFPAY ==
[2018-07-24 10:14] LABS: Add Manual Diff / Slide Review NO; Basophils Absolute Auto 0 /uL (0-100); Basophils Percent Auto 0.6 % (0-2); Eosinophils Absolute Auto 0 /uL (0-450); Eosinophils Percent Auto 0.4 % (2-4); Hematocrit 41.1 % (36-46); Lymphocytes Absolute Auto 1500 /uL (1100-4500); Lymphocytes Percent Auto 42.7 % (25-40); Mean Corpuscular HGB Conc 34.1 % (30-36); Mean Corpuscular Hemoglobin 31.3 PG (26-34); Monocytes Absolute Auto 300 /uL (0-900); Monocytes Percent Auto 7.5 % (3-14); Neutrophils Absolute Auto 1700 /uL (1500-7000); Neutrophils Percent Auto 48.8 % (50-75); Platelet Count 209 X10^3/uL (150-400); Red Blood Cell Count 4.47 X10^6/uL (4.0-5.2); Red Cell Distribution Width 13.8 % (11.6-14.8); White Blood Cell Count 3.5 X10^3/uL (4.5-11.0)
[2018-07-24 10:26] LABS: Alanine Aminotransferase 20 IU/L (9-52); Albumin 3.4 g/dL (3.5-5.0); Albumin Globulin Ratio 1.3 (1.0-2.8); Alkaline Phosphatase 57 U/L (38-126); Aspartate Aminotransferase 20 IU/L (14-36); Bilirubin Total 1.6 mg/dL (0.2-1.3); Blood Urea Nitrogen 9 mg/dL (7-17); Calcium 9.9 mg/dL (8.4-10.2); Carbon Dioxide 29 mmol/L (22-32); Chloride 99 mmol/L (98-107); Estimated Glomerular Filt Rate > 60.0 mL/min (>60); Globulin 2.6 g/dL (1.7-4.1); Glucose 72 mg/dL (80-110); HEMOLYSIS < 15 (0-50); Sodium 137 mmol/L (137-145)
[2018-07-24 10:45] LABS: Potassium 2.7 mmol/L (3.4-5.1)
[2018-07-24 10:51] LABS: Thyroid Stimulating Hormone 2.82 uIU/mL (0.47-4.68)
[2018-07-24 11:13] LABS: Vitamin B12 271 pg/mL (239-931)
== END ==
PROVIDERS: Visit Provider Nurse Practitioner Family
DX: E87.6 Hypokalemia (principal); R53.83 Other fatigue; Z79.899 Other long term (current) drug therapy
CPT/HCPCS: 36415; 80053; 82607; 84443; 85025

== ENCOUNTER → 2018-07-26 07:01 | Outpatient (ROUT) | payer MEDICARE, MEDICAID, SELFPAY ==
[2018-07-26 08:07] LABS: HEMOLYSIS < 15 (0-50); Potassium 3.4 mmol/L (3.4-5.1)
== END ==
PROVIDERS: Visit Provider Nurse Practitioner Family
DX: E87.6 Hypokalemia (principal)
CPT/HCPCS: 36415; 84132

== ENCOUNTER → 2018-08-02 07:08 | Outpatient (ROUT) | payer MEDICARE, MEDICAID, SELFPAY ==
[2018-08-02 08:18] LABS: HEMOLYSIS < 15 (0-50); Potassium 3.1 mmol/L (3.4-5.1)
== END ==
PROVIDERS: Visit Provider Internal Medicine
DX: E87.6 Hypokalemia (principal)
CPT/HCPCS: 36415; 84132

== ENCOUNTER → 2018-08-09 07:24 | Outpatient (ROUT) | payer MEDICARE, MEDICAID, SELFPAY ==
[2018-08-09 09:12] LABS: Alanine Aminotransferase 22 IU/L (9-52); Albumin 3.1 g/dL (3.5-5.0); Albumin Globulin Ratio 1.1 (1.0-2.8); Alkaline Phosphatase 59 U/L (38-126); Aspartate Aminotransferase 18 IU/L (14-36); BUN Creatinine Ratio 13.3 (6-22); Bilirubin Total 0.9 mg/dL (0.2-1.3); Blood Urea Nitrogen 8 mg/dL (7-17); Carbon Dioxide 36 mmol/L (22-32); Chloride 101 mmol/L (98-107); Estimated Glomerular Filt Rate > 60.0 mL/min (>60); Globulin 2.7 g/dL (1.7-4.1); Glucose 76 mg/dL (80-110); HEMOLYSIS < 15 (0-50); Potassium 4.1 mmol/L (3.4-5.1); Sodium 139 mmol/L (137-145); Total Protein 5.8 g/dL (6.3-8.2)
== END ==
PROVIDERS: Visit Provider Nurse Practitioner Family
DX: E87.6 Hypokalemia (principal); R17 Unspecified jaundice; E11.9 Type 2 diabetes mellitus without complications
CPT/HCPCS: 36415; 80053; 83036

== ENCOUNTER → 2018-09-11 07:21 | Outpatient (ROUT) | payer MEDICARE, MEDICAID, SELFPAY ==
[2018-09-11 08:13] LABS: BUN Creatinine Ratio 22.5 (6-22); Blood Urea Nitrogen 9 mg/dL (7-17); Calcium 10.4 mg/dL (8.4-10.2); Carbon Dioxide 34 mmol/L (22-32); Chloride 102 mmol/L (98-107); Creatine Kinase 36 U/L (30-135); Estimated Glomerular Filt Rate > 60.0 mL/min (>60); Glucose 104 mg/dL (80-110); HEMOLYSIS < 15 (0-50); Potassium 4.3 mmol/L (3.4-5.1); Sodium 140 mmol/L (137-145)
[2018-09-11 08:25] LABS: Hemoglobin A1C% w Est Avg Glu 4.8 % (4.0-6.0)
[2018-09-13 14:12] LABS: Aldolase 2.6 U/L (< 8.2)
[2018-09-13 23:20] LABS: Albumin 3.5 g/dL (3.8-4.8); Alpha 1 Globulin 0.3 g/dL (0.2-0.3); Alpha 2 Globulin 0.6 g/dL (0.5-0.9); Beta 1 Globulin 0.3 g/dL (0.4-0.6); Gamma Globulin 0.8 g/dL (0.8-1.7); Protein, Total 5.8 g/dL (6.1-8.1)
== END ==
PROVIDERS: Visit Provider Nurse Practitioner Family
DX: E87.6 Hypokalemia (principal); E11.49 Type 2 diabetes mellitus with other diabetic neurological complication
CPT/HCPCS: 36415; 80048; 82085; 82550; 83036; 84155; 84165

== ENCOUNTER → 2018-10-16 07:53 | Outpatient (ROUT) | payer MEDICARE, MEDICAID, SELFPAY ==
[2018-10-16 09:07] LABS: Alanine Aminotransferase 20 IU/L (9-52); Albumin 3.9 g/dL (3.5-5.0); Albumin Globulin Ratio 1.4 (1.0-2.8); Alkaline Phosphatase 69 U/L (38-126); Amylase 51 U/L (30-110); Aspartate Aminotransferase 21 IU/L (14-36); Bilirubin Total 0.7 mg/dL (0.2-1.3); Blood Urea Nitrogen 12 mg/dL (7-17); Calcium 10.5 mg/dL (8.4-10.2); Carbon Dioxide 32 mmol/L (22-32); Chloride 100 mmol/L (98-107); Estimated Glomerular Filt Rate > 60.0 mL/min (>60); Globulin 2.8 g/dL (1.7-4.1); Glucose 139 mg/dL (80-110); HEMOLYSIS < 15 (0-50); Lipase 145 U/L (23-300); Potassium 4.2 mmol/L (3.4-5.1); Sodium 141 mmol/L (137-145); Total Protein 6.7 g/dL (6.3-8.2)
[2018-10-16 09:09] LABS: Add Manual Diff / Slide Review NO; Basophils Absolute Auto 0 /uL (0-100); Basophils Percent Auto 0.6 % (0-2); Eosinophils Absolute Auto 0 /uL (0-450); Eosinophils Percent Auto 0.8 % (2-4); Hematocrit 43.4 % (36-46); Hemoglobin 14.5 g/dL (12.0-16.0); Lymphocytes Absolute Auto 1500 /uL (1100-4500); Lymphocytes Percent Auto 41.7 % (25-40); Mean Corpuscular HGB Conc 33.4 % (30-36); Mean Corpuscular Hemoglobin 30.4 PG (26-34); Mean Corpuscular Volume 90.8 fL (80-100); Monocytes Absolute Auto 300 /uL (0-900); Monocytes Percent Auto 8.8 % (3-14); Neutrophils Absolute Auto 1700 /uL (1500-7000); Neutrophils Percent Auto 48.1 % (50-75); Platelet Count 183 X10^3/uL (150-400); Red Blood Cell Count 4.78 X10^6/uL (4.0-5.2); Red Cell Distribution Width 13.1 % (11.6-14.8); White Blood Cell Count 3.6 X10^3/uL (4.5-11.0)
== END ==
PROVIDERS: Visit Provider Internal Medicine
DX: R10.9 Unspecified abdominal pain (principal)
CPT/HCPCS: 36415; 80053; 82150; 83690; 85025

== ENCOUNTER → 2018-12-28 09:07 | Outpatient (ROUT) | payer MEDICARE, MEDICAID, SELFPAY ==
[2018-12-28 10:32] LABS: Add Manual Diff / Slide Review NO; Basophils Absolute Auto 0 /uL (0-100); Basophils Percent Auto 0.4 % (0-2); Eosinophils Absolute Auto 0 /uL (0-450); Eosinophils Percent Auto 0.7 % (2-4); Hematocrit 43.2 % (36-46); Hemoglobin 14.3 g/dL (12.0-16.0); Lymphocytes Absolute Auto 1300 /uL (1100-4500); Lymphocytes Percent Auto 36.2 % (25-40); Mean Corpuscular HGB Conc 33.2 % (30-36); Mean Corpuscular Hemoglobin 29.7 PG (26-34); Mean Corpuscular Volume 89.6 fL (80-100); Monocytes Absolute Auto 400 /uL (0-900); Monocytes Percent Auto 9.9 % (3-14); Neutrophils Absolute Auto 1900 /uL (1500-7000); Neutrophils Percent Auto 52.8 % (50-75); Platelet Count 151 X10^3/uL (150-400); Red Blood Cell Count 4.82 X10^6/uL (4.0-5.2); Red Cell Distribution Width 14.4 % (11.6-14.8); White Blood Cell Count 3.7 X10^3/uL (4.5-11.0)
[2018-12-28 10:36] LABS: Blood Urea Nitrogen 14 mg/dL (7-17); Carbon Dioxide 32 mmol/L (22-32); Chloride 100 mmol/L (98-107); Estimated Glomerular Filt Rate > 60.0 mL/min (>60); Glucose 198 mg/dL (80-110); HEMOLYSIS < 15 (0-50); Potassium 4.1 mmol/L (3.4-5.1); Sodium 140 mmol/L (137-145)
[2018-12-28 11:22] LABS: Vitamin B12 224 pg/mL (239-931)
[2018-12-28 15:18] LABS: Thyroid Stimulating Hormone 3.36 uIU/mL (0.47-4.68)
== END ==
PROVIDERS: Visit Provider Nurse Practitioner Family
DX: F32.9 Major depressive disorder, single episode, unspecified (principal)
CPT/HCPCS: 36415; 80048; 82607; 84443; 85025

== ENCOUNTER 2019-01-24 06:30 | Day surgery (SDC) | payer MEDICARE, MEDICAID, SELFPAY ==
[2019-01-24 07:05] VITALS: BP 143/83; PULSE 76; RESP 15; TEMP 36.6; O2SAT 97; BMI 28.3
[2019-01-24] MEDS: PROPARACAINE 0.5% OPHTH SOL 2 DROPS EYE-OP (07:15)
[2019-01-24] MEDS: CATARACT EYE COMPOUND (10 DROPS/SYRINGE) 3 DROPS EYE-OP (07:15)
--- NOTE | 2019-01-24 07:26 | PM.PREOP ---
Pre-operative Note Interval Note History & Physical reviewed/Exam performed by Physician: Yes Changes to H&P: No
[2019-01-24] MEDS: TETRACAINE 0.5% OPHTH DROPS 4 ML 2 DROPS EYE-OP (07:50)
[2019-01-24] MEDS: CHONDROIDTIN/SOD HYALURONATE 1.05 ML SYRINGE INTRAOCULA ×2 (08:11→08:20)
[2019-01-24] MEDS: BALANCED SALT IRRIG SOLN NO.2 15 ML 5 ML IRR ×2 (08:11→08:20)
[2019-01-24] MEDS: LIDOCAINE 2% INJ SDV 2 ML INJ (08:15)
[2019-01-24] MEDS: MOXIFLOXACIN INJ 5 MG/ML VIAL EYE-OP (08:16)
[2019-01-24] MEDS: PHENYLEPHRINE/LIDOCAINE VIAL (OR) 0.2 ML EYE-OP (08:19)
[2019-01-24] MEDS: BALANCED SALT IRRIG SOLN NO.2 500 ML, EPINEPHrine 1 MG IRR (08:20)
--- NOTE | 2019-01-24 08:40 | PM.OP.1 ---
Procedure & Clinicians Procedure: Cataract extraction with intraocular lens implant, right Same procedure as scheduled: Yes Indications: Visually significant nuclear sclerosis cataract, right Click Yes if Unassisted: Yes Anesthesia Type: MAC +/- Operative Notes Procedure in detail: The patient was brought to the operating suite. The correct patient, surgical site and lens were confirmed. 0.5 % tetracaine drops were placed in the right eye. The patient was prepped and draped in the typical sterile manner. A lid speculum was placed in the eye. 2% lidocaine was placed on the eye. A paracentesis port was created with a side-port blade. 0.1 mL of 1% preservative free lidocaine with phenylephrine was injected into the anterior chamber. Viscoelastic was injected into the anterior chamber. A 2.6mm keratome was used to create a clear corneal temporal incision. Cystotome and Utrata forceps were used to create a continuous curvilinear capsulorrhexis. Balanced salt solution was used to hydrodissect the nucleus. Phacoemulsification was used to remove the lens. The capsular bag was inflated with viscoelastic. A Haddad ZCBOO +22.0D lens was inserted into the capsule. Viscoelastic was removed and the wound hydrated. The wound was found to be leak free and the eye was assessed to be at normal physiologic pressure. 0.1mL Vigamox was injected into the anterior chamber. The lid speculum was removed and the patient left the operating room in excellent condition. Complications: none Post-operative Condition: stable Disposition: same day surgery
[2019-01-24 11:16] VITALS: BP 143/83; PULSE 76; RESP 15; TEMP 36.6; O2SAT 97
--- NOTE | 2019-01-24 11:21 | SUR.PHASEII ---
late entry: Suzy called Bailey at [facility] and gave report over telephone. Transporter Gab called and transportation arrangement made. Pt left unit when ready and left in stable condition.
== END 2019-01-24 09:15 | disposition home or self-care (01) ==
LOC: OR 06:32
PROVIDERS: PCP Internal Medicine; Visit Provider Ophthalmology
PROC: (CPT 66984; principal; 2019-01-24 07:45)
DX: H25.11 Age-related nuclear cataract, right eye (principal); E11.9 Type 2 diabetes mellitus without complications; I10 Essential (primary) hypertension
CPT/HCPCS: 66984; J0171; J2250

== ENCOUNTER 2019-02-07 10:19 | Day surgery (SDC) | payer MEDICARE, MEDICAID, SELFPAY ==
[2019-02-07 10:40] VITALS: BP 136/81; PULSE 80; RESP 15; TEMP 36.1; O2SAT 99; BMI 26.5
[2019-02-07] MEDS: PROPARACAINE 0.5% OPHTH SOL 2 DROPS EYE-OP (10:45)
[2019-02-07] MEDS: CATARACT EYE COMPOUND (10 DROPS/SYRINGE) 3 DROPS EYE-OP (10:50)
--- NOTE | 2019-02-07 11:08 | SUR.PREOP ---
see [facility] paperwork for full med list'
--- NOTE | 2019-02-07 11:25 | PM.PREOP ---
Pre-operative Note Interval Note History & Physical reviewed/Exam performed by Physician: Yes Changes to H&P: No
[2019-02-07] MEDS: BALANCED SALT IRRIG SOLN NO.2 15 ML 5 ML IRR (11:52)
[2019-02-07] MEDS: CHONDROIDTIN/SOD HYALURONATE 1.05 ML SYRINGE INTRAOCULA (11:53)
[2019-02-07] MEDS: MOXIFLOXACIN INJ 5 MG/ML VIAL EYE-OP (11:53)
[2019-02-07] MEDS: LIDOCAINE 2% INJ SDV 2 ML INJ (11:53)
[2019-02-07] MEDS: PHENYLEPHRINE/LIDOCAINE VIAL (OR) 0.2 ML EYE-OP (11:54)
[2019-02-07] MEDS: TETRACAINE 0.5% OPHTH DROPS 4 ML 2 DROPS EYE-OP (11:54)
[2019-02-07] MEDS: BALANCED SALT IRRIG SOLN NO.2 500 ML, EPINEPHrine 1 MG IRR (11:55)
--- NOTE | 2019-02-07 12:16 | P.OP_ITS ---
Procedure & Clinicians Procedure: Cataract extraction with intraocular lens implant, left Same procedure as scheduled: Yes Indications: Visually significant age related nuclear sclerosis, left Surgeon: Blaise Barnes Click Yes if Unassisted: Yes Anesthesia Type: MAC +/- Operative Notes Procedure in detail: The patient was brought to the operating suite. The correct patient, surgical site and lens were confirmed. 0.5 % tetracaine drops were placed in the left eye. The patient was prepped and draped in the typical karolina rile manner. A lid speculum was placed in the eye. 2% lidocaine was placed on the eye. A paracentesis port was created with a side-port blade. 0.1 mL of 1% preservative free lidocaine with phenylephrine was injected into the anterior chamber. Viscoelastic was injected into the anterior chamber. A 2.6mm keratome was used to create a clear corneal temporal incision. Cystotome and Utrata forceps were used to create a continuous curvilinear capsulorrhexis. Balanced salt solution was used to hydrodissect the nucleus. Phacoemulsification was used to remove the lens. The capsular bag was inflated with viscoelastic. A Haddad ZCBOO +22.5D lens was inserted into the capsule. Viscoelastic was removed and the wound hydrated. The wound was found to be leak free and the eye was assessed to be at normal physiologic pressure. 0.1mL Vigamox was injected into the anterior chamber. The lid speculum was removed and the patient left the operating room in excellent condition. Complications: none Post-operative Condition: stable Disposition: same day surgery
[2019-02-07 12:20] VITALS: BP 130/80; PULSE 78; RESP 16; TEMP 35.8; O2SAT 99
== END 2019-02-07 12:45 ==
PROVIDERS: PCP Internal Medicine; Visit Provider Ophthalmology
PROC: (CPT 66984; principal; 2019-02-07 11:30)
DX: H25.12 Age-related nuclear cataract, left eye (principal); E11.9 Type 2 diabetes mellitus without complications; I10 Essential (primary) hypertension
CPT/HCPCS: 66984; J0171; J2250

== ENCOUNTER → 2019-02-26 07:28 | Outpatient (ROUT) | payer MEDICARE, MEDICAID, SELFPAY ==
[2019-02-26 07:42] LABS: Add Manual Diff / Slide Review NO; Basophils Absolute Auto 0 /uL (0-100); Basophils Percent Auto 0.4 % (0-2); Eosinophils Absolute Auto 0 /uL (0-450); Eosinophils Percent Auto 0.3 % (2-4); Hematocrit 40.4 % (36-46); Hemoglobin 13.8 g/dL (12.0-16.0); Lymphocytes Absolute Auto 1300 /uL (1100-4500); Lymphocytes Percent Auto 36.6 % (25-40); Mean Corpuscular HGB Conc 34.1 % (30-36); Mean Corpuscular Hemoglobin 29.8 PG (26-34); Mean Corpuscular Volume 87.4 fL (80-100); Monocytes Absolute Auto 400 /uL (0-900); Monocytes Percent Auto 11.3 % (3-14); Neutrophils Absolute Auto 1800 /uL (1500-7000); Neutrophils Percent Auto 51.4 % (50-75); Platelet Count 153 X10^3/uL (150-400); Red Blood Cell Count 4.63 X10^6/uL (4.0-5.2); Red Cell Distribution Width 14.1 % (11.6-14.8); White Blood Cell Count 3.6 X10^3/uL (4.5-11.0)
[2019-02-26 08:11] LABS: Alanine Aminotransferase 12 IU/L (<35); Albumin 4.2 g/dL (3.5-5.0); Albumin Globulin Ratio 1.5 (1.0-2.8); Alkaline Phosphatase 117 U/L (38-126); Aspartate Aminotransferase 19 IU/L (14-36); Bilirubin Total 0.7 mg/dL (0.2-1.3); Blood Urea Nitrogen 15 mg/dL (7-17); Calcium 9.9 mg/dL (8.4-10.2); Carbon Dioxide 34 mmol/L (22-32); Chloride 100 mmol/L (98-107); Estimated Glomerular Filt Rate > 60.0 mL/min (>60); Globulin 2.8 g/dL (1.7-4.1); Glucose 242 mg/dL (80-110); HEMOLYSIS < 15 (0-50); Potassium 4.1 mmol/L (3.4-5.1); Sodium 139 mmol/L (137-145)
[2019-02-26 08:14] LABS: Hemoglobin A1C% w Est Avg Glu 8.2 % (4.0-6.0)
[2019-02-26 08:42] LABS: Thyroid Stimulating Hormone 5.36 uIU/mL (0.47-4.68)
[2019-02-26 09:17] LABS: Folate 16.8 ng/mL (2.76-20.0); Vitamin B12 500 pg/mL (239-931)
== END ==
PROVIDERS: PCP Internal Medicine; Visit Provider Internal Medicine
DX: G62.9 Polyneuropathy, unspecified (principal)
CPT/HCPCS: 36415; 80053; 82607; 82746; 83036; 84443; 85025

== ENCOUNTER → 2019-03-04 13:24 | Outpatient (CLI) | payer MEDICARE, MEDICAID, SELFPAY ==
--- NOTE | 2019-03-04 | DI.MRI.S_ITS ---
PROCEDURE: MR STROKE Pre- and post-contrast brain MRI, non-contrast brain MR angiogram, pre- and postcontrast neck MR angiogram INDICATIONS: Muscle weakness (generalized) TECHNIQUE: Brain: Noncontrast axial T1 spin echo, axial T2 fast spin echo, sagittal and axial FLAIR, coronal T2 fast spin echo, axial gradient echo, axial diffusion and ADC through the brain. After the administration of contrast, axial 3D VIBE of the cranial vasculature and brain. Brain MRA: Non-contrast 3-D time of flight MR angiogram, with multiple dhbskmi-mgypsjvzs-pmqpfufeym (MIP) reformats performed. Neck MRA: Axial and sagittal TruFISP through the neck. Coronal dynamic MR angiogram during administration of contrast in the arterial and venous phases, with 3-dimenstional ndaaqqd-lagsjmbjt-qfxrysdose (MIP) reformats constructed from subtraction images. COMPARISON: None. FINDINGS: Image quality: Excellent. BRAIN: CSF spaces: Ventricles are normal in size and shape. Basal cisterns are patent. No extra-axial fluid collections. Brain: No intracranial bleeds or mass effects. Moderate diffuse cerebral volume loss. Moderate degree of patchy high FLAIR signal intensity within the periventricular and subcortical white matter. Willis-white matter interface is normal. Diffusion weighted images show no acute ischemic insults. Brainstem appears normal. Normal intravascular flow voids are present. No abnormal intracranial enhancement. Skull and face: Calvarial marrow signal is normal. Orbits appear normal. Sinuses: Sinuses are clear. There is a small amount of mastoid fluid bilaterally. BRAIN MR ANGIOGRAM: Anterior circulation: Intracranial internal carotid arteries are normal in size and enhancement. The flow within the paired anterior cerebral arteries is normal and symmetric. The flow within the middle cerebral arteries is normal and symmetric. The anterior communicating artery is seen. No stenoses, occlusions, or aneurysms. Posterior circulation: Reduced flow within the right vertebral artery is present, which demonstrates no definite stenosis on the accompanying neck MR angiography examination.. Left vertebral artery is within normal limits. Basilar artery is within normal limits. The flow within the posterior cerebral arteries is normal and symmetric. No occlusions nor aneurysms. NECK MR ANGIOGRAM: Aortic arch is widely patent. Proximal great vessels are not well seen. Right subclavian artery is patent as visualized. Right vertebral artery is not well-seen at its origin, but is otherwise patent. Left subclavian artery is patent as visualized. Left vertebral artery is patent and dominant. Right common carotid artery is not well seen proximally. Right internal and external carotid arteries are patent. Left common carotid artery is not well seen proximally. Left internal and external carotid arteries are patent. [employer] T2 imaging through the neck is grossly unremarkable. IMPRESSION: BRAIN MRI: 1. Volume loss and small vessel ischemic disease. 2. No recent infarct. No acute process. BRAIN MR ANGIOGRAM: 1. Reduced flow within the right distal vertebral artery, which may indicate underlying stenosis. No definite stenosis in this region is seen on the cervical MR angiography examination. NECK MR ANGIOGRAM: 1. Suboptimally visualized proximal great vessels, which could be further assessed with CT angiography, if clinically indicated. 2. No internal carotid artery stenosis bilaterally. 3. Nonvisualized right vertebral artery origin. Vertebral arteries are otherwise patent. Dictated by: Yashira Peacock M.D. on 03/04/2019 at 15:15 Approved by: Yashira Peacock M.D. on 03/04/2019 at 15:20
== END ==
PROVIDERS: PCP Internal Medicine; Visit Provider Internal Medicine
DX: M62.81 Muscle weakness (generalized) (principal); M50.31 Other cervical disc degeneration, high cervical region; M48.02 Spinal stenosis, cervical region; M48.03 Spinal stenosis, cervicothoracic region
CPT/HCPCS: 70548; 70553; A9579

== ENCOUNTER → 2019-03-05 12:00 | Outpatient (CLI) | payer MEDICARE, MEDICAID, SELFPAY ==
--- NOTE | 2019-03-05 | DI.MRI.S_ITS ---
PROCEDURE: MR CERVICAL SPINE WO CON INDICATIONS: Neck pain TECHNIQUE: Noncontrast sagittal T1 spin echo and T2 fast spin echo, sagittal STIR, foraminal oblique sagittal T2 fast spin echo, and axial gradient echo or T2 fast spin echo through the cervical spine. COMPARISON: [facility], MR, MR CERVICAL SPINE WO/W CON, 02/23/2018, 13:31. FINDINGS: Image quality: Degraded by motion artifact. Alignment and Curvature: There is loss of normal cervical lordosis. There is mild grade 1 anterolisthesis of C2 on C3, C3 on C4, C4 on C5, and C7 on T1. Bone Marrow: Marrow demonstrates normal overall signal. There is moderate reactive signal within the endplates adjacent to the C5-C6 intervertebral disc. Mild reactive signal within the endplates adjacent to the C3-C4, C4-C5, C6-C7, and C7-T1 Spinal Cord: Visualized spinal cord has normal size and signal. No cerebellar tonsillar herniation. Paraspinous Soft Tissues: No paravertebral masses. Prevertebral soft tissues are normal in thickness. C2-C3: Moderate disc desiccation. Mild facet and uncovertebral hypertrophy bilaterally. Mild canal stenosis. Moderate bilateral foraminal stenosis. No change. C3-C4: Moderate disc desiccation. Mild diffuse disc bulge. Moderate facet and uncovertebral hypertrophy bilaterally. Moderate canal stenosis. Severe left and moderate right foraminal stenosis. Left C4 nerve root compression. No change. C4-C5: Moderate disc height loss and desiccation. Mild diffuse disc bulge. Moderate facet and uncovertebral hypertrophy bilaterally. Moderate to severe canal stenosis. Mild cord flattening. Severe bilateral foraminal stenosis. Bilateral C5 nerve root compression. No change. C5-C6: Moderate disc height loss and desiccation. Moderate diffuse disc bulge. Moderate facet and uncovertebral hypertrophy bilaterally. Moderate to severe canal stenosis. Minimal anterior cord flattening. Severe bilateral foraminal stenosis. Bilateral C6 nerve root compression. No change. C6-C7: Moderate disc desiccation. Mild diffuse disc bulge. Mild facet and uncovertebral hypertrophy bilaterally. Mild canal stenosis. Mild bilateral foraminal stenosis. C7-T1: Moderate disc height loss and desiccation. Mild diffuse disc bulge with superimposed small central protrusion. Moderate facet and uncovertebral hypertrophy bilaterally. Moderate canal stenosis. Severe bilateral foraminal stenosis. Bilateral C8 nerve root compression. IMPRESSION: 1. Multilevel degenerative disc and facet disease, as well as uncovertebral hypertrophy. 2. Multilevel canal stenoses, worst at C4-C5 and C5-C6, where there is minimal cord flattening. 3. Multilevel foraminal stenoses, worst at C3-C4, C4-C5, C5-C6, and C7-T1 where there is associated intraforaminal nerve root compression. Recommend correlation with clinical symptoms to ascertain relevance of these findings. Dictated by: Yashira Peacock M.D. on 03/05/2019 at 16:00 Approved by: Yashira Peacock M.D. on 03/05/2019 at 16:06
== END ==
PROVIDERS: PCP Internal Medicine; Visit Provider Internal Medicine
DX: M50.31 Other cervical disc degeneration, high cervical region (principal); M48.02 Spinal stenosis, cervical region; M48.03 Spinal stenosis, cervicothoracic region
CPT/HCPCS: 72141

== ENCOUNTER → 2019-04-02 08:21 | Outpatient (ROUT) | payer MEDICARE, MEDICAID, SELFPAY ==
[2019-04-02 09:39] LABS: Thyroid Stimulating Hormone 6.94 uIU/mL (0.47-4.68)
[2019-04-02 09:54] LABS: Rheumatoid Factor < 8.6 IU/mL (<12.0)
[2019-04-04 12:31] LABS: CCP Antibody (IgG) < 16 Units (< 20)
[2019-04-05 16:00] LABS: ANA Screen, IFA NEGATIVE (NEGATIVE)
== END ==
PROVIDERS: PCP Internal Medicine; Visit Provider Nurse Practitioner Family
DX: R53.1 Weakness (principal); M79.643 Pain in unspecified hand
CPT/HCPCS: 36415; 84443; 86038; 86200; 86430

== ENCOUNTER → 2019-04-25 07:38 | Outpatient (ROUT) | payer MEDICARE, MEDICAID, SELFPAY ==
[2019-04-25 08:31] LABS: Hemoglobin A1C% w Est Avg Glu 8.6 % (4.0-6.0)
[2019-04-25 08:43] LABS: Vitamin D 25 Hydroxy (D3) 31.3 ng/mL (30.0-100.0)
== END ==
PROVIDERS: PCP Internal Medicine; Visit Provider Internal Medicine
DX: E11.9 Type 2 diabetes mellitus without complications (principal); G62.9 Polyneuropathy, unspecified; Z79.899 Other long term (current) drug therapy
CPT/HCPCS: 36415; 82306; 83036; 83516; 83519

== ENCOUNTER 2019-05-17 10:29 | Observation (INO) | payer MEDICARE, MEDICAID, SELFPAY ==
[2019-05-17] VITALS (9 sets, daily range): BP systolic 126–175; BP diastolic 65–92; PULSE 91–106; RESP 16–21; TEMP 36.7–37.2; O2SAT 96–99; BMI 38.2
--- NOTE | 2019-05-17 10:41 | DI.RAD.S_ITS ---
PROCEDURE: XR CHEST 1V INDICATIONS: fatigue TECHNIQUE: One view of the chest was acquired. COMPARISON: None. FINDINGS: Surgical changes and devices: None. Lungs and pleura: Lungs are clear. No pleural effusions or pneumothorax. Mediastinum: Mediastinal contours appear normal. Heart size is normal. Bones and chest wall: No suspicious bony lesions. Overlying soft tissues appear unremarkable. IMPRESSION: No acute cardiopulmonary pathology. Dictated by: Kartik Mcdowell M.D. on 05/17/2019 at 11:52 Approved by: Kartik Mcdowell M.D. on 05/17/2019 at 11:53
--- NOTE | 2019-05-17 10:54 | PC.NURSE ---
with 2 rn
--- NOTE | 2019-05-17 11:01 | PC.NURSE ---
pt arrives incontinent of urine and stool, dried stool to feet. per medics pt has no clean clothes in her hotel room, they were all saturated with urine and feces. two person assist to clean and catheterized pt.
[2019-05-17 11:02] LABS: Appearance Urine UA CLOUDY; Bilirubin Urine UA 1+ (NEGATIVE); Color Urine UA YELLOW; Glucose Urine UA NEGATIVE (Negative); Ketones Urine UA 3+ (NEGATIVE); Leukocyte Esterase Urine UA 2+ (NEGATIVE); Nitrite Urine UA POSITIVE (Negative); Occult Blood Urine UA 3+ (Negative); Protein Urine UA 3+ (Negative); Specific Gravity Urine UA >=1.030 (1.000-1.035)
[2019-05-17 11:13] LABS: Amorphous Sediment Urine 1+; Bacteria Urine Moderate (10-30); Culture Indicated Urine Specimen Cultured; Ictotest Urine Negative (Negative); RBC Urine 5-10/HPF (0-5/HPF); Squamous Epithelial Cell Urine 1-5 /HPF (0-5/HPF); WBC Urine >100/HPF (0-5/HPF)
[2019-05-17] MEDS: SODIUM CHLORIDE 0.9% 1,000 ML 125 ML IV ×2 (11:20→18:58)
[2019-05-17 11:28] LABS: Add Manual Diff / Slide Review NO; Basophils Absolute Auto 100 /uL (0-100); Basophils Percent Auto 1.2 % (0-2); Eosinophils Absolute Auto 0 /uL (0-450); Hematocrit 42.5 % (36-46); Hemoglobin 14.5 g/dL (12.0-16.0); Lymphocytes Absolute Auto 900 /uL (1100-4500); Lymphocytes Percent Auto 15.4 % (25-40); Mean Corpuscular HGB Conc 34.1 % (30-36); Mean Corpuscular Hemoglobin 30.3 PG (26-34); Monocytes Absolute Auto 400 /uL (0-900); Monocytes Percent Auto 7.5 % (3-14); Neutrophils Absolute Auto 4200 /uL (1500-7000); Neutrophils Percent Auto 75.9 % (50-75); Platelet Count 179 X10^3/uL (150-400); Red Blood Cell Count 4.78 X10^6/uL (4.0-5.2); Red Cell Distribution Width 15.4 % (11.6-14.8); White Blood Cell Count 5.6 X10^3/uL (4.5-11.0)
[2019-05-17 11:31] LABS: Influenza A - CEPHEID Flu A NEGATIVE (NEGATIVE); Influenza B - CEPHEID Flu B NEGATIVE (NEGATIVE)
--- NOTE | 2019-05-17 11:33 | ED_ITS ---
HPI - Female Genitourinary General Chief complaint: Urogenital-Female Time Seen by Provider: 05/17/19 10:32 Source: EMS Mode of arrival: EMS Limitations: no limitations History of Present Illness HPI Narrative: 69-year-old female former smoker with history of diabetes, hypertension presents by paramedics with a chief complaint of feeling weak, fatigued having not taken any of her medications in consumed any food or drink since Monday because she has been too weak. The paramedics found her soaked in her own urine and feces. Her only obvious chief complaint is of painful and frequent urination. She denies any fever chills and has no chest pain or shortness of breath. She is currently homeless and had been living at a hotel after being kicked out of an extended care facility Related Data Home Medications Medication Instructions Recorded Confirmed alpha lipoic acid 300 mg PO BEDTIME 05/17/19 05/17/19 amlodipine 10 mg PO DAILY 05/17/19 05/17/19 aspirin 81 mg PO DAILY 05/17/19 05/17/19 celecoxib [Celebrex] 100 mg PO DAILY 05/17/19 05/17/19 citalopram 20 mg PO DAILY 05/17/19 05/17/19 gabapentin 600 mg PO TID 05/17/19 05/17/19 lisinopril 40 mg PO DAILY 05/17/19 05/17/19 potassium chloride 20 meq PO DAILY 05/17/19 05/17/19 Allergies Allergy/AdvReac Type Severity Reaction Status Date / Time nalidixic acid [From NegGram] Allergy Verified 04/19/19 11:26 Penicillins Allergy Hives Verified 04/19/19 11:26 Sulfa (Sulfonamide Allergy Verified 04/19/19 11:26 Antibiotics) Review of Systems Constitutional Constitutional: Denies chills, Denies fatigue, Denies fever(s), Denies frequent falls, Denies lethargy and Reports weakness Eyes Eyes: Denies change in vision, Denies eye discharge, Denies irritation and Denies loss of vision ENT Ears, Nose, Mouth, and Throat: Denies change in voice, Denies dizziness, Denies neck pain, Denies sore throat and Denies throat swelling Cardiovascular Cardiovascular: Denies chest pain, Denies irregular heart rhythm, Denies lightheadedness, Denies palpitations, Denies dyspnea, Denies dyspnea on exertion and Denies orthopnea Respiratory Respiratory: Denies cough, Denies dyspnea, Denies dyspnea on exertion and Denies wheezing Gastrointestinal Gastrointestinal: Denies abdominal pain, Denies change in bowel habits, Denies diarrhea, Denies nausea and Denies vomiting Genitourinary Genitourinary: Denies hematuria, Reports dysuria, Denies flank pain, Denies urinary incontinence and Denies urinary urgency Musculoskeletal Musculoskeletal: Denies back pain, Denies muscle weakness, Denies neck pain, Denies numbness and Denies tingling Integumentary/Breasts Skin/Breast: Denies pruritus, Denies erythema, Denies rash and Denies wounds Neurologic Neurologic: Denies behavioral changes, Denies confusion, Denies dizziness, Denies frequent falls, Denies loss of vision, Denies numbness, Denies tingling and Reports weakness Psychiatric Psychiatric: Denies anxiety, Denies behavioral changes, Denies confusion, Denies depression, Denies homicidal ideation and Denies suicidal ideation Endocrine Endocrine: Denies fatigue, Denies flushing and Denies palpitations Hematologic/Lymphatic Hematologic/Lymphatic: Denies easy bruising Allergic/Immunologic Allergic/Immunologic: Denies urticaria, Denies throat swelling and Denies wheezing Patient History alcohol intake frequency: a few times a month Alcohol type: wine Substance Use Type: does not use Exam Narrative Exam Narrative: GENERAL: 69 [] year old patient appears stated age. Well- nourished, well-developed patient, in mild distress. Unwell, significantly weak, alert and oriented, covered in her own urine and stool HEAD: Atraumatic. Normocephalic. EYES: Pupils equal round and reactive. Extraocular motions intact. No scleral icterus. No injection or drainage. ENT: Dry membranes. Nose without bleeding, purulent drainage. Throat without erythema, tonsillar hypertrophy or exudate. Airway patent. NECK: Trachea midline. Non tender CARDIOVASCULAR: Regular rate and rhythm without murmurs, gallops, or rubs. RESPIRATORY: Clear to auscultation. Breath sounds equal bilaterally. No wheezes, rales, or rhonchi. GASTROINTESTINAL: Abdomen soft, non-tender, nondistended. EXTREMITIES: No edema or joint tenderness. Decreased sensation and B/L weakness, more generally weak than baseline BACK: Nontender without deformity or crepitance. No flank tenderness. NEURO: AOx3. SKIN: No rash or erythema of visible areas Initial Vital Signs Initial Vital Signs: Vital Signs Temperature 99.0 F 05/17/19 10:18 Pulse Rate 92 H 05/17/19 10:18 Respiratory Rate 18 05/17/19 10:18 Blood Pressure 126/89 05/17/19 10:18 Pulse Oximetry 98 05/17/19 10:18 Course Orders Ordered: ED Orders 05/17/19 10:41 XR chest 1V Stat 05/17/19 10:42 EKG-12 Lead Stat 05/17/19 10:54 Influenza A & B (PCR) Stat 05/17/19 10:55 Ictotest Urine Stat Urinalysis and Microscopic Stat Urine Culture Stat 05/17/19 11:10 Blood Culture Stat Complete Blood Count AUTO DIFF Stat Comprehensive Metabolic Panel Stat Lactate (Lactic Acid) Stat Magnesium Stat NT-proBNP (BNP-Adult 18+) Stat Procalcitonin Stat Troponin & CK Cardiac Panel Stat Sodium Chloride (Normal Saline 0.9%) 1,000 mls @ 125 mls/hr IV CONT DEBORA Last Admin: 05/17/19 11:20 Dose: 125 mls/hr Documented by: KYE Levofloxacin (Levaquin) 750 mg in 150 mls @ 100 mls/hr IV NOW ONE Stop: 05/17/19 13:02 Last Admin: 05/17/19 11:44 Dose: 100 mls/hr Documented by: KYE Vital Signs Vital signs: Vital Signs - 8 hr 05/17/19 10:18 05/17/19 11:15 05/17/19 11:30 Temperature 99.0 F Pulse Rate 92 H 91 H 93 H Respiratory Rate 18 18 18 Blood Pressure 126/89 Blood Pressure [Right Arm] 159/69 H 165/65 H Pulse Oximetry 98 97 98 05/17/19 12:00 Temperature Pulse Rate 95 H Respiratory Rate 21 Blood Pressure Blood Pressure [Right Arm] 167/77 H Pulse Oximetry 96 MDM - Female Genitourinary Lab Data Result diagrams: 05/17/19 11:10 05/17/19 11:10 Labs: Lab Results 05/17/19 05/17/19 05/17/19 Range/Units 10:54 10:55 11:10 WBC 5.6 (4.5-11.0) X10^3/uL RBC 4.78 (4.0-5.2) X10^6/uL Hgb 14.5 (12.0-16.0) g/dL Hct 42.5 (36-46) % MCV 89.0 (80-100) fL MCH 30.3 (26-34) PG MCHC 34.1 (30-36) % RDW 15.4 H (11.6-14.8) % Plt Count 179 (150-400) X10^3/uL Neut % (Auto) 75.9 H (50-75) % Lymph % (Auto) 15.4 L (25-40) % [place] % (Auto) 7.5 (3-14) % Eos % (Auto) 0.0 L (2-4) % Baso % (Auto) 1.2 (0-2) % Neut # (Auto) 4200 (0483-8081) /uL Lymph # (Auto) 900 L (3381-8702) /uL [place] # (Auto) 400 (0-900) /uL Eos # (Auto) 0 (0-450) /uL Baso # (Auto) 100 (0-100) /uL Sodium (137-145) mmol/L Potassium (3.4-5.1) mmol/L Chloride (98-107) mmol/L Carbon Dioxide (22-32) mmol/L BUN (7-17) mg/dL Creatinine (0.52-1.04) mg/dL Estimated GFR (>60) mL/min BUN/Creatinine Ratio (6-22) Glucose (80-110) mg/dL Lactate (0.7-2.1) mmol/L Calcium (8.4-10.2) mg/dL Magnesium (1.6-2.3) mg/dL Total Bilirubin (0.2-1.3) mg/dL AST (14-36) IU/L ALT (<35) IU/L Alkaline Phosphatase (38-126) U/L Total Creatine Kinase (30-135) U/L CK-MB (CK-2) (<2.37) ng/mL CK-MB (CK-2) Rel Index (1.5-5.0) % Troponin I (0.01-0.034) ng/mL NT-Pro-B Natriuret Pep (<125) pg/mL Total Protein (6.3-8.2) g/dL Albumin (3.5-5.0) g/dL Globulin (1.7-4.1) g/dL Albumin/Globulin Ratio (1.0-2.8) Procalcitonin (<0.5) ng/mL Urine Color Yellow Urine Appearance Cloudy Urine pH 5.0 (4.5-8.0) Ur Specific [place] >=1.030 H (1.000-1.035) Urine Protein 3+ H (Negative) Urine Glucose (UA) Negative (Negative) g/dL Urine Ketones 3+ H (NEGATIVE) Urine Occult Blood 3+ H (Negative) Urine Nitrate Positive H (Negative) Urine Bilirubin 1+ H (NEGATIVE) Ur Bilirubin Confirm Negative (Negative) Urine Urobilinogen 2.0 H (0.2) E.U./dL Ur Leukocyte Esterase 2+ H (NEGATIVE) Urine RBC 5-10/hpf H (0-5/HPF) Urine WBC >100/hpf H (0-5/HPF) Ur Squamous Epith Cells 1-5 /hpf (0-5/HPF) Amorphous Sediment 1+ Urine Bacteria Moderate (10-30) H (None) Ur Culture Indicated? Specimen cultured Influenza A (RT-PCR) Flu a negative (NEGATIVE) Influenza B (RT-PCR) Flu b negative (NEGATIVE) 05/17/19 05/17/19 05/17/19 Range/Units 11:10 11:10 11:10 WBC (4.5-11.0) X10^3/uL RBC (4.0-5.2) X10^6/uL Hgb (12.0-16.0) g/dL Hct (36-46) % MCV (80-100) fL MCH (26-34) PG MCHC (30-36) % RDW (11.6-14.8) % Plt Count (150-400) X10^3/uL Neut % (Auto) (50-75) % Lymph % (Auto) (25-40) % [place] % (Auto) (3-14) % Eos % (Auto) (2-4) % Baso % (Auto) (0-2) % Neut # (Auto) (3558-6274) /uL Lymph # (Auto) (9552-5408) /uL [place] # (Auto) (0-900) /uL Eos # (Auto) (0-450) /uL Baso # (Auto) (0-100) /uL Sodium 140 (137-145) mmol/L Potassium 3.8 (3.4-5.1) mmol/L Chloride 105 (98-107) mmol/L Carbon Dioxide 23 (22-32) mmol/L BUN 18 H (7-17) mg/dL Creatinine 0.60 (0.52-1.04) mg/dL Estimated GFR > 60.0 (>60) mL/min BUN/Creatinine Ratio 30.0 H (6-22) Glucose 141 H (80-110) mg/dL Lactate 1.2 (0.7-2.1) mmol/L Calcium 9.9 (8.4-10.2) mg/dL Magnesium 2.1 (1.6-2.3) mg/dL Total Bilirubin 1.3 (0.2-1.3) mg/dL AST 26 (14-36) IU/L ALT 17 (<35) IU/L Alkaline Phosphatase 83 (38-126) U/L Total Creatine Kinase 137 H (30-135) U/L CK-MB (CK-2) 1.96 (<2.37) ng/mL CK-MB (CK-2) Rel Index 1.4 L (1.5-5.0) % Troponin I < 0.012 (0.01-0.034) ng/mL NT-Pro-B Natriuret Pep 84 (<125) pg/mL Total Protein 8.0 (6.3-8.2) g/dL Albumin 4.5 (3.5-5.0) g/dL Globulin 3.5 (1.7-4.1) g/dL Albumin/Globulin Ratio 1.3 (1.0-2.8) Procalcitonin < 0.05 (<0.5) ng/mL Urine Color Urine Appearance Urine pH (4.5-8.0) Ur Specific [place] (1.000-1.035) Urine Protein (Negative) Urine Glucose (UA) (Negative) g/dL Urine Ketones (NEGATIVE) Urine Occult Blood (Negative) Urine Nitrate (Negative) Urine Bilirubin (NEGATIVE) Ur Bilirubin Confirm (Negative) Urine Urobilinogen (0.2) E.U./dL Ur Leukocyte Esterase (NEGATIVE) Urine RBC (0-5/HPF) Urine WBC (0-5/HPF) Ur Squamous Epith Cells (0-5/HPF) Amorphous Sediment Urine Bacteria (None) Ur Culture Indicated? Influenza A (RT-PCR) (NEGATIVE) Influenza B (RT-PCR) (NEGATIVE) Discharge Plan Departure Patient Disposition: Admitted as Observation Clinical Impression: Acute UTI, Weakness Referrals: Ora Ocampo [Primary Care Provider] - Admit Date/Time: 05/17/19 12:24 Admit Provider: Armando Mccoy
[2019-05-17] MEDS: levoFLOXacin 750 MG/150 ML PIGGYBACK 100 MG IV (11:44)
[2019-05-17 11:46] LABS: Alanine Aminotransferase 17 IU/L (<35); Albumin 4.5 g/dL (3.5-5.0); Albumin Globulin Ratio 1.3 (1.0-2.8); Alkaline Phosphatase 83 U/L (38-126); Aspartate Aminotransferase 26 IU/L (14-36); Bilirubin Total 1.3 mg/dL (0.2-1.3); Blood Urea Nitrogen 18 mg/dL (7-17); Calcium 9.9 mg/dL (8.4-10.2); Carbon Dioxide 23 mmol/L (22-32); Chloride 105 mmol/L (98-107); Creatine Kinase 137 U/L (30-135); Estimated Glomerular Filt Rate > 60.0 mL/min (>60); Globulin 3.5 g/dL (1.7-4.1); Glucose 141 mg/dL (80-110); HEMOLYSIS < 15 (0-50); Magnesium 2.1 mg/dL (1.6-2.3); Potassium 3.8 mmol/L (3.4-5.1); Sodium 140 mmol/L (137-145)
[2019-05-17 11:47] LABS: Lactate (Lactic Acid) 1.2 mmol/L (0.7-2.1)
[2019-05-17 11:58] LABS: NT-proBNP (BNP-Adult 18+) 84 pg/mL (<125); Troponin I < 0.012 ng/mL (0.01-0.034)
[2019-05-17 12:02] LABS: Procalcitonin < 0.05 ng/mL (<0.5)
[2019-05-17 12:03] LABS: CKMB % Relative Index 1.4 % (1.5-5.0); Creatine Kinase MB 1.96 ng/mL (<2.37)
--- NOTE | 2019-05-17 15:47 | PC.NURSE ---
Admission note: Pt admitted to short-stay unit for progressive weakness and probable UTI as well as placement issues. Pt alert and oriented, denies pain, RA, SPO2 98%. Denies SOB, CP or other discomfort. Denies nausea. Pt's medications sent to pharmacy. Pt with limited personal belongings, does not want to put wallet in safe, valuables policy explained. Pt with call light in reach, able to use it appropriately. Report given to oncoming RN Nae. Will notify MD with changes.
[2019-05-17] MEDS: GABAPENTIN 600 MG TABLET PO ×2 (16:48→21:12)
--- NOTE | 2019-05-17 17:49 | P.HP_ITS ---
History of Present Illness History of Present Illness Date Patient Seen: 05/17/19 Chief complaint: Urogenital-Female Narrative: Patient is a 69-year-old female brought to emergency department by medics due to complaints of weakness, fatigue and dysuria. For past 3 days she has had symptoms of urinary urgency, frequency and burning discomfort. She has not had UTI in years. Patient has been very weak with decreased p.o. intake. On ER evaluation vitals were stable except mild tachycardic with heart rate in 90s and mild elevated blood pressure, normal labs except for abnormal urinalysis consistent with UTI. Additional potentially relevant history patient was living at [facility] living [facility] and forced to move out this past weekend due to inability to pay her rent. This past week she has been living at the [facility] where she has a handicap room with a kitchenette. Patient has baseline impaired mobility and gets around in manual wheelchair and sometimes uses a walker. She states she has neuropathy and radiculopathy for which she sees Dr. Cifuentes for neurology. Patient History Medical History (Updated 05/17/19 @ 17:51 by Armando Mccoy MD) Healthy adult (Acute) Hypertension (Acute) Neuropathy (Acute) Radiculopathy (Acute) Surgical History (System 04/19/19 @ 11:26 by Kimberly Summers) No pertinent past surgical history (Acute) Family & Social History Social History: household members caregiver Safety & Behavioral: Feels Safe in Current Yes Environment Been Physically Hurt or No Threatened By a Person Suicidal Ideation Description None Suicide Plan Description No Plan Tobacco & Substance use: Smoking Status Never smoker alcohol intake current alcohol intake frequency a few times a week Substance Use Type does not use Meds Home Medications and Allergies Home Medications Medication Instructions Recorded Confirmed Type alpha lipoic acid 300 mg PO BEDTIME 05/17/19 05/17/19 History amlodipine 10 mg PO DAILY 05/17/19 05/17/19 History aspirin 81 mg PO DAILY 05/17/19 05/17/19 History celecoxib [Celebrex] 100 mg PO DAILY 05/17/19 05/17/19 History citalopram 20 mg PO DAILY 05/17/19 05/17/19 History gabapentin 600 mg PO TID 05/17/19 05/17/19 History lisinopril 40 mg PO DAILY 05/17/19 05/17/19 History potassium chloride 20 meq PO DAILY 05/17/19 05/17/19 History Allergies Allergy/AdvReac Type Severity Reaction Status Date / Time nalidixic acid [From NegGram] Allergy Verified 04/19/19 11:26 Penicillins Allergy Hives Verified 04/19/19 11:26 Sulfa (Sulfonamide Allergy Verified 04/19/19 11:26 Antibiotics) Review of Systems Review of Systems ROS: Yes All systems reviewed with the patient and are negative except as otherwise documented Exam Vital Signs (past 8 hours): - 05/17/19 10:18 05/17/19 11:15 05/17/19 11:30 Temperature 99.0 F Pulse Rate 92 H 91 H 93 H Respiratory Rate 18 18 18 Blood Pressure 126/89 Blood Pressure [Right Arm] 159/69 H 165/65 H Pulse Oximetry 98 97 98 05/17/19 12:00 05/17/19 13:06 05/17/19 14:00 Temperature 98.1 F Pulse Rate 95 H 106 H 96 H Respiratory Rate 21 20 20 Blood Pressure 153/84 H Blood Pressure [Right Arm] 167/77 H 175/83 H Pulse Oximetry 96 97 98 05/17/19 16:00 Temperature 98.1 F Pulse Rate 101 H Respiratory Rate 17 Blood Pressure 156/82 H Blood Pressure [Right Arm] Pulse Oximetry 99 Oxygen Delivery Method Room Air Oxygen Flow Rate 0 Narrative Exam Narrative: GENERAL: Patient seen in hospital room where she appears alert cooperative and in no acute distress HEAD: Atraumatic. Normocephalic. EYES: Pupils equal, round and reactive. Extraocular motions intact. No scleral icterus. No injection or drainage. OROPHARYNX: Unremarkable NECK: Trachea midline. No JVD or lymphadenopathy. CARDIOVASCULAR: Regular rate and rhythm without murmurs, gallops, or rubs. RESPIRATORY: Clear to auscultation bilaterally. GASTROINTESTINAL: Abdomen nondistended, soft, non-tender. No hepato- splenomegaly, or palpable masses. EXTREMITIES: No edema. NEUROLOGICAL: Alert, well oriented, speech is intact, normal bilateral upper and lower extremity strength SKIN: warm, dry, no rash Objective Labs Result Diagrams: 05/17/19 11:10 05/17/19 11:10 Labs: Laboratory Results - last 24 hr 05/17/19 05/17/19 05/17/19 10:54 10:55 11:10 WBC 5.6 RBC 4.78 Hgb 14.5 Hct 42.5 MCV 89.0 MCH 30.3 MCHC 34.1 RDW 15.4 H Plt Count 179 Neut % (Auto) 75.9 H Lymph % (Auto) 15.4 L [place] % (Auto) 7.5 Eos % (Auto) 0.0 L Baso % (Auto) 1.2 Neut # (Auto) 4200 Lymph # (Auto) 900 L [place] # (Auto) 400 Eos # (Auto) 0 Baso # (Auto) 100 Sodium Potassium Chloride Carbon Dioxide BUN Creatinine Estimated GFR BUN/Creatinine Ratio Glucose Lactate Calcium Magnesium Total Bilirubin AST ALT Alkaline Phosphatase Total Creatine Kinase CK-MB (CK-2) CK-MB (CK-2) Rel Index Troponin I NT-Pro-B Natriuret Pep Total Protein Albumin Globulin Albumin/Globulin Ratio Procalcitonin Urine Color Yellow Urine Appearance Cloudy Urine pH 5.0 Ur Specific [place] >=1.030 H Urine Protein 3+ H Urine Glucose (UA) Negative Urine Ketones 3+ H Urine Occult Blood 3+ H Urine Nitrate Positive H Urine Bilirubin 1+ H Ur Bilirubin Confirm Negative Urine Urobilinogen 2.0 H Ur Leukocyte Esterase 2+ H Urine RBC 5-10/hpf H Urine WBC >100/hpf H Ur Squamous Epith Cells 1-5 /hpf Amorphous Sediment 1+ Urine Bacteria Moderate (10-30) H Ur Culture Indicated? Specimen cultured Influenza A (RT-PCR) Flu a negative Influenza B (RT-PCR) Flu b negative 05/17/19 05/17/19 05/17/19 11:10 11:10 11:10 WBC RBC Hgb Hct MCV MCH MCHC RDW Plt Count Neut % (Auto) Lymph % (Auto) [place] % (Auto) Eos % (Auto) Baso % (Auto) Neut # (Auto) Lymph # (Auto) [place] # (Auto) Eos # (Auto) Baso # (Auto) Sodium 140 Potassium 3.8 Chloride 105 Carbon Dioxide 23 BUN 18 H Creatinine 0.60 Estimated GFR > 60.0 BUN/Creatinine Ratio 30.0 H Glucose 141 H Lactate 1.2 Calcium 9.9 Magnesium 2.1 Total Bilirubin 1.3 AST 26 ALT 17 Alkaline Phosphatase 83 Total Creatine Kinase 137 H CK-MB (CK-2) 1.96 CK-MB (CK-2) Rel Index 1.4 L Troponin I < 0.012 NT-Pro-B Natriuret Pep 84 Total Protein 8.0 Albumin 4.5 Globulin 3.5 Albumin/Globulin Ratio 1.3 Procalcitonin < 0.05 Urine Color Urine Appearance Urine pH Ur Specific [place] Urine Protein Urine Glucose (UA) Urine Ketones Urine Occult Blood Urine Nitrate Urine Bilirubin Ur Bilirubin Confirm Urine Urobilinogen Ur Leukocyte Esterase Urine RBC Urine WBC Ur Squamous Epith Cells Amorphous Sediment Urine Bacteria Ur Culture Indicated? Influenza A (RT-PCR) Influenza B (RT-PCR) Assessment & Plan Assessment & Plan narrative: 1. Acute urinary tract infection, present on admission -urine culture pending, received Levaquin 750 mg IV dose in ED which possibly may be sufficient by itself to treat her UTI -ordered Levaquin 250 mg p.o. q.a.m. x2 doses to complete UTI treatment -normal saline 125 cc/hour for overnight hydration 2. Hypertension -resume routine home medications 3. Neuropathy -resume home medications Patient admitted to hospital observation with expectation of less than 2 midnight stay. She would likely go back to the hotel in [place] where she is set up in a handicap accessible room.
--- NOTE | 2019-05-17 17:58 | PC.NURSE ---
Addendum entered by Hillary Nieves R.N. 05/17/19 22:42: Pt expresses concern re how soiled clothing brought in from [facility] will be laundered. Pt further states, the way things went, I don't think I would be welcome back there again. Confidential phone message left for land planner re pt's living situation. Addendum entered by Hillary Nieves R.N. 05/17/19 18:51: Art Gallery Director from [facility] ([employer]) in [place] brings pt's personal belongings and wheelchair to room 106. Inquired of pt if able to transfer from bed to commode and pt reports does not have the strength to do so. Continues with urinary incontinence, but able to tell staff when voiding and needing to be changed. Original Note: Dr. Mccoy sees pt this evening shift. Pt reports discomfort with voiding. States voiding in brief. Inquired of pt if able to walk and pt reports is able to do so with walker. C/o reflux with hiatal hernia and Dr. Mccoy was informed of this. Pt's head of bed elevated. Taking diet without difficulty. Pt is able to assist with turning in bed for brief change.
[2019-05-18] VITALS (8 sets, daily range): BP systolic 132–154; BP diastolic 75–87; PULSE 77–91; RESP 16–18; TEMP 36.1–37.1; O2SAT 91–98
[2019-05-18] MEDS: SODIUM CHLORIDE 0.9% 1,000 ML 125 ML IV ×2 (03:00→10:50)
[2019-05-18] MEDS: ACETAMINOPHEN 325 MG TABLET 650 MG PO (03:37)
--- NOTE | 2019-05-18 05:17 | PC.NURSE ---
NOC Note: Pt able to roll in bed and assist with repositioning, incontinent if bowel and bladder calling for brief change. Pt reported GILLETTE and declined APAP, orders for Ibuprofen received and pt delined that as well. Eventually pt took APAP for bladder discomfort. Pt is currently sleeping soundly.
--- NOTE | 2019-05-18 08:20 | PC.NURSE ---
Day Shift Pt placed call light and stated she needed a brief change. Discussed with pt how she was going to the bathroom previously, stated she had a walker in the room and she agreed it was hers. She said she would get up previously. Told pt that she needed to get up and go to the bathroom as she was getting excoriation on her conor area. She replied that they had a bed pruitt in the room, explained to pt that if she was getting up previously we were going to try and get up to the BS to urinate. She stated she preferred not to as getting up would exhaust her for the day. Explained to pt that if she laid in bed and didn't move she would only get weaker so we needed to start working on her strength. Pt then stated that she didn't always know when she had to urinate, sometimes it just happened. Explained to pt that that was fine but we were going to work on it. Offered to get pt up to the chair for breakfast, she refused, stating i prefer to eat in bed. Sat pt up to about 45 deg, she stated she was cantalevered forward and couldn't eat like that. Sat pt back to about 40 deg. Will continue to monitor.
[2019-05-18] MEDS: lisinopriL 20 MG TABLET 40 MG PO (09:51)
[2019-05-18] MEDS: CELECOXIB 100 MG CAPSULE PO (09:51)
[2019-05-18] MEDS: ASPIRIN EC 81 MG TABLET PO (09:51)
[2019-05-18] MEDS: CITALOPRAM 20 MG TABLET PO (09:51)
[2019-05-18] MEDS: levoFLOXacin 250 MG TABLET PO (09:51)
[2019-05-18] MEDS: AMLODIPINE 5 MG TABLET 10 MG PO (09:51)
[2019-05-18] MEDS: GABAPENTIN 600 MG TABLET PO ×3 (09:51→21:10)
--- NOTE | 2019-05-18 10:52 | CM.IDA ---
Initial DCP Assessment Note: Pt is a 69 yo female, resident of [place]. Pt here under observation status, presents w/complaint of feeling weak and found to have a UTI. PCP: Ora Ocampo Payer: LUCIA/CLARENCE This ROLL DOUGH DIVIDER assisting RN NICKO Weiss w/this patient and DCP. Reviewed chart then met w/pt, ED ROLL DOUGH DIVIDER Tawanda included on this visit. According to our conversation: Pt was evicted from [facility] approx 5 days ago. 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 Pt was not satisfied w/this arrangement, wanted full access to her income, approx $2500 in social security. She was required to pay the full rent at [facility] [place] and, according to pt, rent built up so [facility] gave 30 day notice. Pt explains her goal is to live ind. Pt states she researched cost of rent in [place] and decided to stay at the [facility] while she looked for an apt. Pt admits she was talking to her [facility] Community [facility] SHEILA Zamora this week about getting YULI cg, likely food stamps as well, then got sick Re: care needs at [facility], pt states she had her briefs changed approx every 3 hours by staff. She admits to urine incontinence and states she often can make it to the BR to have a bowel movement because I have enough warning. Review of nursing notes indicates pt has been incontinent of bowel before coming in and while here. Discussed SNF stay w/ pt (?) pt was open to the suggestion but was not interested in a intermediate school teacher care facility placement at this time. Placed call to Masood at [facility]; reviewed this referral, would they consider Medicaid as a payer? He suggested that if pt had an outstanding bill at [facility] it would be challenging for them to accept her. PT/OT evals pending today. Reviewed above w/ RN NICKO Weiss and Dr Mccoy. Pt seems to lack insight today into her current care needs but remains A+O; if she is able to pass therapy evals in preparation for home, she could likely be discharged home today/tomorrow, either utilizing the [employer] voucher program through [facility] (if she is indp. in ADLs) vs securing another mot room on her own. She may benefit from home health in that case. If she cannot safely care for herself independently, DC planning team will need to follow closely to coordinate / [facility]/Home and Community Services about safest option available to patient DAVON Elliott Discharge Planning/Care Management CM Discharge Assessment Start: 05/18/19 10:36 Freq: Status: Active Protocol: Document 05/18/19 10:36 MARYANN (Rec: 05/18/19 10:51 MARYANN [id number]) Discharge Planning Assessment Assigned Fringe Weaver DAVON Morales DPOA/Assigned Designee Name None Advance Directives? Yes: On file at [facility] Advance Directives on File No History Provided By Patient Comment Motel, [employer] in [place] Household Members none Type of transporation used prior to Medicaid Transport admit Independent with ADL's No Is patient alert and oriented? A+O Comment Incontinent of urine, sometimes also bowel Patient/Family Preference Home with Home Health Barriers to Discharge Yes Comment Very recently evicted from [facility] for not paying rent. Lived at a mot for days, developed UTI, admitted obs, unsure if returning to [facility] is realistic or feasible at this time, therapy evals pending Discharge Plan Home Transportation Arrangement Likely medicaid transportation
[2019-05-18] MEDS: ONDANSETRON 4 MG ODT SL ×2 (11:34→18:00)
--- NOTE | 2019-05-18 12:01 | PM.CHAP ---
Staff referral. Introduced myself to Pt who was alert and seemed able to understand her situation. She agreed that she was unable to care for herself and would need assistance. Pt. does not appear to meet criteria for hospital ([facility]) voucher program or [facility] because she is not independent. Pt appeared open to returning to a SNF situation, sharing that beggars can't be choosers. [place] [phone]
--- NOTE | 2019-05-18 13:28 | PM.PN.1 ---
Subjective Subjective Date Patient Seen: 05/18/19 Interval history: Patient admitted to observation services for UTI and IV hydration. Urine growing gram-negative bacilli. She is incontinent of stool and urine but not having diarrhea. She requests Aleve for headache. She has refused to mobilize out of bed with PT or work with OT. She was long-term resident of [facility] assisted living but forced out last weekend due to nonpayment of rent and had moved into hotel but found covered in stool and feces and unable to take care of self. Patient states she was doing okay the 1st day she moved out but then functionally declined. Exam Vital Signs (past 8 hours): - 05/18/19 06:00 05/18/19 08:18 05/18/19 09:07 Temperature 98.7 F 98.1 F Pulse Rate 79 91 H Respiratory Rate 18 16 Blood Pressure 144/87 H 142/79 H Pulse Oximetry 98 98 91 05/18/19 13:00 Temperature 98.1 F Pulse Rate 85 Respiratory Rate 16 Blood Pressure 153/80 H Pulse Oximetry 97 Oxygen Delivery Method Room Air Oxygen Flow Rate 0 Narrative Exam Narrative: General: Alert and in no acute distress Objective Labs Result Diagrams: 05/17/19 11:10 05/17/19 11:10 Assessment & Plan Assessment & Plan narrative: 1. Acute urinary tract infection, present on admission -urine culture growing gram-negative bacilli, received Levaquin 750 mg IV dose in ED which possibly may be sufficient by itself to treat her UTI -ordered Levaquin 250 mg p.o. q.a.m. x2 doses to complete UTI treatment -received IV hydration -remove IV 04/2919 2. Hypertension -resumed routine home medications 3. Neuropathy -resumed home medications 4. Headache, chronic -naproxen 250-500 mg b.i.d. as needed 5. Debility -at baseline in manual wheelchair and also uses walker -PT/OT consult -discharge planning and social work to help with finding safe disposition Patient ready for discharge whenever has safe discharge plan
--- NOTE | 2019-05-18 15:06 | PT.IIE ---
Surgical History (This Medical Record has been edited. Action required.) No pertinent past surgical history (Acute) Medical History (This Medical Record has been edited. Action required.) Healthy adult (Acute) Hypertension (Acute) Neuropathy (Acute) Radiculopathy (Acute) Physical Therapy Inpatient Evaluation/Re-Eval M1 PT/OT-IP Prior Functional Status Start: 05/18/19 16:01 Freq: NEEDED Status: Active Protocol: Document 05/18/19 15:06 AB (Rec: 05/18/19 16:19 AB [id number]) Medical Review Prior Functional Status Medical History Reviewed Yes Communication able to make needs known Mobility and Gait pt stated that she moved to [place] in 2016 and has gotten weak that she stayed at [facility] for less than a year and then to [facility] for 1 1/2 years. stated that she was non- ambulatory since she was at [facility] and was only doing some ambulation in the // bars at [facility]. uses her manual w/c most of the time. requires assist with bed mobility and transfers using a 4WW. Prior Functional Level (Other details) pt stated that she was getting weaker since she moved to [place] in 2016 and was not able to walk. stated that her neurologist said that she has really bad radiculopathy. pt has been using bilateral AFOs for her foot drop Social History Household Members none Number of Stairs To Enter/Railing? pt moved out of [facility] and currently is homeless. stated that she is working on getting an apartment and a caregiver to assist her. M2 PT-IP Current Condition Start: 05/18/19 16:01 Freq: NEEDED Status: Active Protocol: Document 05/18/19 15:06 AB (Rec: 05/18/19 16:19 AB [id number]) Physical Therapy Current Condition Current Condition Evaluation Date 05/18/19 Treatment Diagnosis UTI; difficulty in walking Onset Date 05/17/2019 M3 PT-IP Subjective Start: 05/18/19 16:01 Freq: NEEDED Status: Active Protocol: Document 05/18/19 15:06 AB (Rec: 05/18/19 16:19 AB [id number]) Subjective Physical Therapy Visit Type Type Initial Evaluation Visit Start Time 15:06 Visit Stop Time 15:40 Total Visit Minutes 34 Number of GRAVEL INSPECTOR Visits 0 Physical Therapy Visit Comments Patient Comments pt c/o nausea and unable to complete transfers M4 PT-IP Mobility and Gait Start: 05/18/19 16:01 Freq: NEEDED Status: Active Protocol: Document 05/18/19 15:06 AB (Rec: 05/18/19 16:19 AB [id number]) PT-Bed Mobility Assessment Supine to Sit Supine to Sit Standby Assistance Sit to Supine Sit to Supine Standby Assistance Scooting Scooting to Edge of Bed Standby Assistance PT-Transfer Assessment Sit to and From Stand Sit to and from Stand Minimal Assistance,1 Person Assistance,Use of Upper Extremities Equipment Transfer Assistive Device Gait Belt,Front Wheeled Walker Orthotic/Prosthetic Devices or Brace: No Comments Mobility Comments BP 166/76 pt completed bed mobility supine to sit SBA but required increase time to complete task. completed sit to stand min A and cues but c/ o nausea in standing and has to sit down in ~ 5 sec of standing. BP 168/77. pt stood up again min A but has to sit back down and unable to complete transfers with c/o nausea. pt presents with bilateral knee hyperextension during standing and heavy UE use on FWW for support. Pt wanted to lay back in bed and completed sit to supine SBA. positioned in bed. call light and table placed within reach . PT-Balance Assessment Sitting Balance and Reactions Static Sitting Balance Ability Good Dynamic Sitting Balance Ability Good Standing Balance and Reactions Static Standing Balance Ability Fair Dynamic Standing Balance Ability Poor Device Used FWW M5 PT-IP Objective Assessments Start: 05/18/19 16:01 Freq: NEEDED Status: Active Protocol: Document 05/18/19 15:06 AB (Rec: 05/18/19 16:19 AB [id number]) Orientation Orientation/Cognition Level of Alertness Alert Orientation Name,Place,Situation Safety Awareness Decreased Safety Awareness Gross Range of Motion Lower Extremity ROM Assessment Bilaterally Impaired Impairments B ankle DF tightness with L ankle only goes to neutral position Strength Lower Extremity Strength Assessment Bilaterally Impaired Comments Strength Comments R ankle DF 2-/5 L ankle DF 1/5 Coordination Assessment Gross Coordination Gross Coordination WNL Sensation Assessment Sensation Gross Sensation Right LE Impaired,Left LE Impaired Light Touch Impaired Proprioception (Position) Impaired Sensation Description Tingling M6 PT-IP Treatment Start: 05/18/19 16:01 Freq: NEEDED Status: Active Protocol: Document 05/18/19 15:06 AB (Rec: 05/18/19 16:19 AB [id number]) Physical Therapy Treatment Education Education Provided Safety M7 PT-IP Assessment and Plan Start: 05/18/19 16:01 Freq: NEEDED Status: Active Protocol: Document 05/18/19 15:06 AB (Rec: 05/18/19 16:19 AB [id number]) PT Summary Assessment and Plan Potential Rehabilitation Potential Good Summary Impairments Pain,ROM,Strength,Balance, Coordination,Sensation,Tone, Cognition,Bed Mobility, Transfers,Gait,Activity Tolerance Assessment Summary pt requires min A with sit to stand but c/o nausea and unable to complete a transfer. further assessment is needed to determine safe d/c plan. per pt, she has been using her manual w/c for mobility and has not ambulated for at least 2 1/2 years. Goals Bed Mobility Goal Independent Transfer Goal Standby Assistance Gait Goal Minimal Assistance,Front Wheel Walker Gait Distance 25 Days to Meet Goals 5 Frequency of Treatment Frequency Of Treatment Once a Day Treatment Plan Physical Therapy Treatment Plan Bed Mobility Training,Transfer Training,Gait Training, Therapeutic Exercise,Balance Retraining,Discharge Planning, Hot or Cold Pack,Neuromuscular Re-ed,Coordination Retraining ,Manual Therapy Recommendations To Nursing Amount of Assist Needed PT/OT Assist Only Discharge Recommendations PT Discharge Recommendations Home with 24/7 Assist,Home Health,SNF Rehab Other Discharge Recommendations depending on progress SNF vs home with 24/7 and HHPT Transportation Needs at Discharge Wheelchair/Cabulance
--- NOTE | 2019-05-18 15:42 | OT.IP.EVAL ---
Past Medical History (This Medical Record has been edited. Action required.) Healthy adult (Acute) Hypertension (Acute) Neuropathy (Acute) Radiculopathy (Acute) Surgical History (This Medical Record has been edited. Action required.) No pertinent past surgical history (Acute) Occupational Therapy Inpatient Evaluation/Re-Eval M1 PT/OT-IP Prior Functional Status Start: 05/18/19 16:01 Freq: NEEDED Status: Active Protocol: Document 05/18/19 16:51 CGR (Rec: 05/18/19 17:15 CGR [id number]) Medical Review Prior Functional Status Medical History Reviewed Yes Communication able to make needs known Mobility and Gait pt stated that she moved to [place] in 2016 and has gotten weak that she stayed at [facility] for less than a year and then to [facility] for 1 1/2 years. stated that she was non- ambulatory since she was at [facility] and was only doing some ambulation in the // bars at [facility]. uses her manual w/c most of the time. requires assist with bed mobility and transfers using a 4WW. Activities of Daily Living and IADL's Pt states that she was able to bathe herself and dress herself but needed assist with toileting as she is incontinent. Per notes, pt was changed every 3 hours at [place]. Prior Functional Level (Other details) pt stated that she was getting weaker since she moved to [place] in 2016 and was not able to walk. stated that her neurologist said that she has really bad radiculopathy. pt has been using bilateral AFOs for her foot drop Social History Household Members none Number of Stairs To Enter/Railing? pt moved out of [facility] and currently is homeless. stated that she is working on getting an apartment and a caregiver to assist her. M2 OT-IP Current Condition Start: 05/18/19 16:50 Freq: Status: Active Protocol: Document 05/18/19 16:51 CGR (Rec: 05/18/19 17:15 CGR [id number]) Occupational Therapy Current Condition Current Condition Evaluation Date 05/18/19 Treatment Diagnosis UTI Diagnosis Onset Date 05/17/19 M3 OT- IP Subjective and Pain Start: 05/18/19 16:50 Freq: Status: Active Protocol: Document 05/18/19 16:51 CGR (Rec: 05/18/19 17:15 CGR [id number]) OT- Subjective Occupational Therapy Visit Type Type Initial Evaluation Visit Start Time 15:09 Visit Stop Time 15:42 Total Visit Minutes 33 Notes co-eval with P.T. Occupational Therapy Visit Comments Patient Comments I need to sit, I am nauseated OT Pain Assessment Pain When Pain Assessed At Rest Pain Present Pain Present Denied Pain M4 OT- IP ADL's Start: 05/18/19 16:50 Freq: Status: Active Protocol: Document 05/18/19 16:51 CGR (Rec: 05/18/19 17:15 CGR [id number]) OT [id number] Comments OT Self-Feeding Comments Not performed in this session. OT ADL-Grooming Comments OT Grooming Comments Pt declined OT ADL-Oral Care Comments Oral Care Comments Pt declined OT ADL-Dressing General Eval Lower Body Dressing Ability Standby Assistance Areas Needing Assistance Shoes Comments OT Dressing Comments Pt able to don elastic shoes with extra time seated EOB. OT ADL-Toileting Comments OT Toileting Comments Pt soiled when therapist entered. Nursing coming to change pt after session. OT ADL-Bathing Comments OT Bathing Comments Not performed in this session. M5 OT- IP IADL's Start: 05/18/19 16:50 Freq: Status: Active Protocol: Document 05/18/19 16:51 CGR (Rec: 05/18/19 17:15 CGR [id number]) OT-Instrumental Activities of Daily Living Deficits IADL Deficits Identified Deficits Home Safety Awareness Awareness of Need for Assistance at Home Decreased Awareness Ability to Problem Solve Emergency Unable to Problem Solve Situations Home Safety Comments Pt seems to have poor awareness of her abilities. 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 M6 OT- IP Functional Cognition Start: 05/18/19 16:50 Freq: Status: Active Protocol: Document 05/18/19 16:51 CGR (Rec: 05/18/19 17:15 CGR [id number]) Cognitive Factors Limiting Selfcare Function Cognitive Ability Level of Alertness Alert Patient Orientation Name,Month,Year,Place, Situation Attention Span Ability Capable of Focused Attention, Capable of Sustained Attention Ability to Follow Commands Able to Follow One Step Commands with Increased Time, Able to Follow One Step Commands with Repetition Memory Description No Deficits Noted Safety Awareness Underestimates Need for Assistance Problem Solving Ability Unable to Identify Errors, Needs Assist to Identify Solutions Cognitive Comments Cognitive Assessment Comments Pt would benefit from formal cog assessment. Pt refused at this time d/t nausea. OT- Vision and Hearing OT- Hearing Assessment OT- Hearing Assessment WFL OT- Vision Assessment Visual Acuity WFL Visual Attentiveness WFL Occular Pursuits WFL Visual Convergence WFL Visual Alaniz WFL M7 OT- IP Mobility and Balance Start: 05/18/19 16:50 Freq: Status: Active Protocol: Document 05/18/19 16:51 CGR (Rec: 05/18/19 17:15 CGR [id number]) OT- Bed Mobility Assessment Rolling Type of Rolling Roll to Right Level of Assistance Standby Assistance Supine to Sit Supine to Sit Assist Standby Assistance Sit to Supine Sit to Supine Assist Standby Assistance Scooting Scooting to Edge of Bed Standby Assistance OT-Transfer Assessment Sit to and From Stand Sit to and from Stand Minimal Assistance Technique Transfer Destination Bed Devices Transfer Assistive Devices Gait Belt,Standard Walker Comments Mobility Comments Sit to stand at EOB wtih GB and walker, pt able to maintain standing for less than 5 seconds each time stating nausea and sitting back on bed. No transfer from bed in this session. OT- Balance Assessment Sitting Balance and Reactions Static Sitting Balance Ability Good Dynamic Sitting Balance Ability Fair M8 OT- IP Objective Assessments Start: 05/18/19 16:50 Freq: Status: Active Protocol: Document 05/18/19 16:51 CGR (Rec: 05/18/19 17:15 CGR [id number]) OT Gross Range of Motion Upper Extremity Range of Motion ROM Impairments Pt declined to perform shld ROM stating that it would increase her nausea. OT Strength Comments Strength Comments Pt agreeable only to hands 4+/ 5. OT- Coordination Assessment Upper Extremity Finger to Nose Test Within Functional Limits Finger Tapping Test Within Functional Limits OT-Muscle Tone Assessment Muscle Tone WNL Yes OT Sensation Assessment Edema Edema Absent M9 OT- IP Assessment and Plan Start: 05/18/19 16:50 Freq: Status: Active Protocol: Document 05/18/19 16:51 CGR (Rec: 05/18/19 17:15 CGR [id number]) OT Summary Assessment and Plan Potential Rehabilitation Potential Good Analytic Complexity at Evaluation Low Summary OT Impairments Strength,Balance,Functional Cognition,Functional Mobility, Self-Feeding,Grooming,Dressing ,Toileting,Bathing,Toilet Transfers,Shower Transfers, Activity Tolerance Progress Towards Goals Slow Progress due to Medical Issues,Slow Progress due to Activity Tolerance,Slow Progress due to Cognition Assessment Summary Pt presents as a low complexity evaluation but with significant discharge issues. Pt is unable to transfer at this time therefore she is not a safe discharge to any independent living situation. Pt states that she needed assist for toileting prior to leaving her assisted living but thought she could manage on her own. Pt demonstrates poor cognition and understanding of her limitations. Pt will likely need SNF upon discharge. Goals Self-Feeding Goal Independent Grooming Goal Independent Dressing Goal Independent Toileting Goal Independent Bathing Goal Independent Toilet Transfer Goal Independent Shower Transfer Goal Independent Days to Meet Goals 10 Frequency of Treatment Frequency Of Treatment Once a Day Treatment Plan OT Treatment Plan ADL Training,Functional Cognition Training,Functional Mobility,Patient/Family Education,Discharge Planning Other Treatment Recommendations and Next ADLs seated EOB and formal cog Treatment Focus assessment. Recommend formal cog assessment be performed first as pt declined once she felt nauseated after movement. Discharge Recommendations OT Discharge Recommendations SNF Rehab Transportation Needs at Discharge Wheelchair/Cabulance
--- NOTE | 2019-05-18 17:16 | PC.NURSE ---
Addendum entered by Deepali Berkowitz R.N. 05/18/19 22:07: Sleeping off & on tonight, awakes quickly to voice, oriented to situation. Denies any pain or nausea after taking Naproxen and Zofran. Incontinent of large amt of urine, brief changed & conor-care given, repositioned for comfort. Patient refusing SCD's tonight, saying they were really bothering me. Denies other needs/concerns at this time. Original Note: Evening note: Maria Fernanda resting in bed, A&O to situation. VS stable, slightly hypertensive. Patient sitting up eating her meal, reporting nausea intermittent after standing up with P.T. I gave her eric viky as it was too early for prn zofran. Patient reports generalized pain 4/10, requesting aleve, When I went to give her medication she refused saying I want it after I eat. Incontinent of urine, brief changed. Fall precautions in place, alarm active for safety.
[2019-05-18] MEDS: NAPROXEN 250 MG TABLET 500 MG PO (17:59)
[2019-05-19] VITALS (8 sets, daily range): BP systolic 127–161; BP diastolic 72–88; PULSE 72–79; RESP 16–20; TEMP 36.2–37.1; O2SAT 94–99
--- NOTE | 2019-05-19 00:21 | PC.NURSE ---
0000 Checked on pt. to take her VS & assessment, but she adamantly refused to let us take her VS & to do her assessment. She states get out of my room & let me sleep. Coordinator notified with the pt's. behavior, will monitor.
--- NOTE | 2019-05-19 01:58 | PC.NURSE ---
KRYSTINA Adame notified that pt. refused assessment & VS @ 0000.
[2019-05-19] MEDS: AMLODIPINE 5 MG TABLET 10 MG PO (08:37)
[2019-05-19] MEDS: ASPIRIN EC 81 MG TABLET PO (08:37)
[2019-05-19] MEDS: CELECOXIB 100 MG CAPSULE PO (08:38)
[2019-05-19] MEDS: GABAPENTIN 600 MG TABLET PO ×3 (08:38→20:17)
[2019-05-19] MEDS: CITALOPRAM 20 MG TABLET PO (08:38)
[2019-05-19] MEDS: lisinopriL 20 MG TABLET 40 MG PO (08:39)
[2019-05-19] MEDS: SODIUM CHLORIDE 0.9% FLUSH 10 ML IV ×2 (08:39→20:17)
[2019-05-19] MEDS: levoFLOXacin 250 MG TABLET PO (08:39)
[2019-05-19] MEDS: NAPROXEN 250 MG TABLET 500 MG PO ×2 (08:40→15:54)
--- NOTE | 2019-05-19 10:35 | PC.NURSE ---
Addendum entered by Maegan Pinedo R.N. 05/19/19 13:16: MS - after lunch, pt assisted w/fww, gait belt x 2 person and ambul slowly to shower, pt quickly fatigues with labored breathing, generalized weakness, pt has unbalanced gait and requires assist to the shower chair, after used her wc to assist back to bed. Original Note: AM NOTE - pt is alert during bedside shift report, has had some occassional nausea at times, none now, did have headache discomfort and per pt preference, given naproxin, discussed mobilization, pt states feeling very weak, did agree to plan with RN and LOCAL GOVERNMENT LEGISLATOR to shower after lunch today and to chair, incont urine, brief changed, barrier cream applied.
--- NOTE | 2019-05-19 12:36 | PM.PN.1 ---
Subjective Subjective Date Patient Seen: 05/19/19 Interval history: Patient admitted to observation services for UTI and IV hydration. She is medically stable and can be discharged when we find safe disposition. She was long-term resident of [facility] assisted living but forced out last weekend due to nonpayment of rent and had moved into hotel but found covered in stool and feces and unable to take care of self. Patient states she was doing okay the 1st day she moved out but then functionally declined. She states her nausea and lightheadedness are improved today. She is wanting to find a hotel in town she can move into upon discharge. She is adamant about wanting to live independently. She would like to talk to her Medicaid cath laboratory technician tomorrow, Monday. Physical therapy has not seen her yet today. At baseline patient has severe debility, bilateral footdrop, uses manual wheelchair and sometimes uses her walker. Exam Vital Signs (past 8 hours): - 05/19/19 04:58 05/19/19 05:03 05/19/19 07:45 Temperature 97.2 F L 98.6 F Pulse Rate 77 73 Respiratory Rate 16 16 Blood Pressure 157/88 H 161/87 H Pulse Oximetry 97 99 98 05/19/19 08:00 05/19/19 11:00 Temperature 98.8 F Pulse Rate 72 Respiratory Rate 16 Blood Pressure 158/82 H Pulse Oximetry 96 97 Oxygen Delivery Method Room Air Oxygen Flow Rate 0 Objective Labs Result Diagrams: 05/17/19 11:10 05/17/19 11:10 Assessment & Plan Assessment & Plan narrative: 1. Acute urinary tract infection, present on admission, resolved -urine culture grew pansensitive E coli -received Levaquin 750 mg IV dose in ED -received Levaquin 250 mg p.o. q.a.m. x 2 to complete UTI treatment 2. Hypertension -resumed routine home medications 3. Neuropathy -resumed home medications 4. Headache, chronic -naproxen 250-500 mg b.i.d. as needed 5. Debility -at baseline in manual wheelchair and also uses walker -PT/OT consult -discharge planning and social work to help with finding safe disposition Patient ready for discharge when finds place to live. I think she is capable of making own decisions and we should respect her wishes to live independently while realizing she may fail and end up back in the hospital.
--- NOTE | 2019-05-19 13:37 | PT.IPTN ---
Physical Therapy Treatment Note M2 PT-IP Current Condition Start: 05/18/19 16:01 Freq: NEEDED Status: Active Protocol: Document 05/18/19 15:06 AB (Rec: 05/18/19 16:19 AB [id number]) Physical Therapy Current Condition Current Condition Evaluation Date 05/18/19 Treatment Diagnosis UTI; difficulty in walking Onset Date 05/17/2019 M3 PT-IP Subjective Start: 05/18/19 16:01 Freq: NEEDED Status: Active Protocol: Document 05/19/19 13:24 KS (Rec: 05/19/19 14:57 KS [id number]) Subjective Physical Therapy Visit Type Type Treatment Note Visit Start Time 13:24 Visit Stop Time 13:37 Total Visit Minutes 13 Notes Pt finishing shower w/ TURNING SANDER TENDER upon arrival from therapy. Nursing staff present throughout treatment. Number of RIDING TEACHER Visits 1 M4 PT-IP Mobility and Gait Start: 05/18/19 16:01 Freq: NEEDED Status: Active Protocol: Document 05/19/19 13:24 KS (Rec: 05/19/19 14:57 KS [id number]) PT-Bed Mobility Assessment Sit to Supine Sit to Supine Standby Assistance Scooting Scooting to Edge of Bed Standby Assistance PT-Transfer Assessment Sit to and From Stand Sit to and from Stand Moderate Assistance,2 Person Assistance,Use of Upper Extremities Equipment Transfer Assistive Device Gait Belt,Front Wheeled Walker Orthotic/Prosthetic Devices or Brace: No Comments Mobility Comments Pt was sitting in shower chair and performed sit<>stand w/ FWW and Mod A x2. Once standing, pt reported feelings of nausea but refused to sit back down. Pt performed stand step pivot to w/c w/ Min A x2 and cues for LE guidance. Once in w/c pt was brought to bed. Attempted sit<>stand but pt was not able on first attempt. On second attempt, pt performed sit<>stand and stand step pivot to bed w/ Mod A x2 . Pt was able to scoot back in bed CGA and sit<>sup SBA. Pt required Max A x2 for repositioning in bed. Reviewed LE strengthening exercises, but pt was very agitated stating I can't handle you right now. Pt left in room w/ all needs in reach and TURNING SANDER TENDER present. Gait Assessment Comments Gait Comments Only able to complete 2x stand step pivot transfer w/ therapy in room. Please refer to mobility section for details. PT-Balance Assessment Sitting Balance and Reactions Static Sitting Balance Ability Good Dynamic Sitting Balance Ability Good Standing Balance and Reactions Static Standing Balance Ability Fair Dynamic Standing Balance Ability Poor Device Used FWW M5 PT-IP Objective Assessments Start: 05/18/19 16:01 Freq: NEEDED Status: Active Protocol: Document 05/18/19 15:06 AB (Rec: 05/18/19 16:19 AB [id number]) Orientation Orientation/Cognition Level of Alertness Alert Orientation Name,Place,Situation Safety Awareness Decreased Safety Awareness Gross Range of Motion Lower Extremity ROM Assessment Bilaterally Impaired Impairments B ankle DF tightness with L ankle only goes to neutral position Strength Lower Extremity Strength Assessment Bilaterally Impaired Comments Strength Comments R ankle DF 2-/5 L ankle DF 1/5 Coordination Assessment Gross Coordination Gross Coordination WNL Sensation Assessment Sensation Gross Sensation Right LE Impaired,Left LE Impaired Light Touch Impaired Proprioception (Position) Impaired Sensation Description Tingling M6 PT-IP Treatment Start: 05/18/19 16:01 Freq: NEEDED Status: Active Protocol: Document 05/19/19 13:24 KS (Rec: 05/19/19 14:57 KS [id number]) Physical Therapy Treatment Exercises Exercises Ankle Pumps,Gluteal Sets Education Education Provided Safety M7 PT-IP Assessment and Plan Start: 05/18/19 16:01 Freq: NEEDED Status: Active Protocol: Document 05/19/19 13:24 KS (Rec: 05/19/19 14:57 KS [id number]) PT Summary Assessment and Plan Potential Rehabilitation Potential Good Summary Impairments Pain,ROM,Strength,Balance, Coordination,Sensation,Tone, Cognition,Bed Mobility, Transfers,Gait,Activity Tolerance Assessment Summary Pt required Mod A x2 for sit<. stand and stand step pivot transfers. SBA for scooting back in bed and sit<>sup. Max A x2 for repositioning in bed. Able to review ankle pumps and quad sets before pt became more agitated and was unwilling to do any further therapy. Goals Bed Mobility Goal Independent Transfer Goal Standby Assistance Gait Goal Minimal Assistance,Front Wheel Walker Gait Distance 25 Days to Meet Goals 5 Frequency of Treatment Frequency Of Treatment Once a Day Treatment Plan Physical Therapy Treatment Plan Bed Mobility Training,Transfer Training,Gait Training, Therapeutic Exercise,Balance Retraining,Discharge Planning, Hot or Cold Pack,Neuromuscular Re-ed,Coordination Retraining ,Manual Therapy Recommendations To Nursing Amount of Assist Needed PT/OT Assist Only Discharge Recommendations PT Discharge Recommendations Home with 24/7 Assist,Home Health,SNF Rehab Other Discharge Recommendations depending on progress SNF vs home with 24/7 and HHPT Transportation Needs at Discharge Wheelchair/Cabulance
--- NOTE | 2019-05-19 17:07 | CM.DPC ---
DCP/continued: Reviewed chart. Spoke with provider in AM rounds. He reports that patient will remain hospitalized today for therapy. Reviewed therapy evaluation indicating that patient would benefit from , SNF, or 24/7 assistance. Spoke with therapist whom indicates that patient somewhat reluctant to do a lot and has been resistant/agitated with staff. DIRECTIONAL SURVEY DRAFTER met with patient explained role. Notified patient that provider indicated that patient will be medically stable for discharge from [facility] tomorrow. Patient reports that she would like to have her dinner without interruption and requests DIRECTIONAL SURVEY DRAFTER come back after she completes her meal. Notified patient that CM team leaving for the day and we would follow up with her in AM. Patient made aware that she will medically stable for discharge tomorrow 05-20-2019. Patient did not want to discuss d/c plan today with DIRECTIONAL SURVEY DRAFTER and asked that we come back. P: Will refer to CM team to see in AM for d/c planning. Unclear if patient can return to [facility]? Anticipate assistance from [facility] CM. Patient is OBS status and does not qualify under Medicare for SNF. Patient would need to be accepted under her Medicaid benefit if she were to go to SNF. DAVON Clifton
[2019-05-19] MEDS: ACETAMINOPHEN 325 MG TABLET 650 MG PO (18:27)
[2019-05-20 00:30] VITALS: BP 138/75; PULSE 72; RESP 18; TEMP 36.8; O2SAT 97
[2019-05-20 00:36] VITALS: O2SAT 95
[2019-05-20 06:37] VITALS: BP 160/87; PULSE 72; RESP 20; TEMP 36.8; O2SAT 98
[2019-05-20 08:00] VITALS: BP 150/75; PULSE 77; RESP 18; TEMP 36.7; O2SAT 98
[2019-05-20 08:18] VITALS: O2SAT 95
[2019-05-20] MEDS: CITALOPRAM 20 MG TABLET PO (08:36)
[2019-05-20] MEDS: AMLODIPINE 5 MG TABLET 10 MG PO (08:36)
[2019-05-20] MEDS: GABAPENTIN 600 MG TABLET PO ×2 (08:37→14:01)
[2019-05-20] MEDS: lisinopriL 20 MG TABLET 40 MG PO (08:37)
[2019-05-20] MEDS: SODIUM CHLORIDE 0.9% FLUSH 10 ML IV (08:37)
[2019-05-20] MEDS: CELECOXIB 100 MG CAPSULE PO (08:37)
[2019-05-20] MEDS: ASPIRIN EC 81 MG TABLET PO (08:37)
--- NOTE | 2019-05-20 09:37 | PT.IPTN ---
Physical Therapy Treatment Note M2 PT-IP Current Condition Start: 05/18/19 16:01 Freq: NEEDED Status: Active Protocol: Document 05/18/19 15:06 AB (Rec: 05/18/19 16:19 AB [id number]) Physical Therapy Current Condition Current Condition Evaluation Date 05/18/19 Treatment Diagnosis UTI; difficulty in walking Onset Date 05/17/2019 M3 PT-IP Subjective Start: 05/18/19 16:01 Freq: NEEDED Status: Active Protocol: Document 05/20/19 09:00 LJ (Rec: 05/20/19 09:37 LJ [id number]) Subjective Physical Therapy Visit Type Type Treatment Note Visit Start Time 09:00 Visit Stop Time 09:17 Total Visit Minutes 17 Notes Pt in bed willing to stand at side of bed but not wanting to walk. Co-treat with OT Number of SAW HANDLE ASSEMBLER Visits 2 M4 PT-IP Mobility and Gait Start: 05/18/19 16:01 Freq: NEEDED Status: Active Protocol: Document 05/20/19 09:00 LJ (Rec: 05/20/19 09:37 LJ [id number]) PT-Bed Mobility Assessment Supine to Sit Supine to Sit Standby Assistance Sit to Supine Sit to Supine Standby Assistance Scooting Scooting to Edge of Bed Standby Assistance Scooting Up and Down in Bed Maximum Assistance PT-Transfer Assessment Sit to and From Stand Sit to and from Stand Minimal Assistance,1 Person Assistance,Use of Upper Extremities Equipment Transfer Assistive Device Gait Belt,Front Wheeled Walker Orthotic/Prosthetic Devices or Brace: No Comments Mobility Comments Pt performed sit<>stand x2 with Tata and assist to change brief. Pt reports initially feeling dizzy while standing but it went away. Gait Assessment Comments Gait Comments Pt initially stated she could walk in a [place] in the room then changed her mind stating she thought standing for several minutes beside the bed was enough for today. Pt returned to bed after brief change needing modA x2 to scoot up to head of bed. She was able to assist with fight UE pulling on bed rails. M5 PT-IP Objective Assessments Start: 05/18/19 16:01 Freq: NEEDED Status: Active Protocol: Document 05/18/19 15:06 AB (Rec: 05/18/19 16:19 AB [id number]) Orientation Orientation/Cognition Level of Alertness Alert Orientation Name,Place,Situation Safety Awareness Decreased Safety Awareness Gross Range of Motion Lower Extremity ROM Assessment Bilaterally Impaired Impairments B ankle DF tightness with L ankle only goes to neutral position Strength Lower Extremity Strength Assessment Bilaterally Impaired Comments Strength Comments R ankle DF 2-/5 L ankle DF 1/5 Coordination Assessment Gross Coordination Gross Coordination WNL Sensation Assessment Sensation Gross Sensation Right LE Impaired,Left LE Impaired Light Touch Impaired Proprioception (Position) Impaired Sensation Description Tingling M6 PT-IP Treatment Start: 05/18/19 16:01 Freq: NEEDED Status: Active Protocol: Document 05/20/19 09:00 (Rec: 05/20/19 09:37 [id number]) Physical Therapy Treatment Education Education Provided Safety M7 PT-IP Assessment and Plan Start: 05/18/19 16:01 Freq: NEEDED Status: Active Protocol: Document 05/20/19 09:00 (Rec: 05/20/19 09:37 [id number]) PT Summary Assessment and Plan Potential Rehabilitation Potential Good Summary Impairments Pain,ROM,Strength,Balance, Coordination,Sensation,Tone, Cognition,Bed Mobility, Transfers,Gait,Activity Tolerance Assessment Summary Pt required MNinA x1 for sit<> stand and modA x2 to scoot up in bed. Pt able to stand several minutes during brief change and wash up.w/o LOB or fatigue Goals Bed Mobility Goal Independent Transfer Goal Standby Assistance Gait Goal Minimal Assistance,Front Wheel Walker Gait Distance 17 Days to Meet Goals 5 Frequency of Treatment Frequency Of Treatment Once a Day Treatment Plan Physical Therapy Treatment Plan Bed Mobility Training,Transfer Training,Gait Training, Therapeutic Exercise,Balance Retraining,Discharge Planning, Hot or Cold Pack,Neuromuscular Re-ed,Coordination Retraining ,Manual Therapy Recommendations To Nursing Amount of Assist Needed 1 Person Assist Discharge Recommendations PT Discharge Recommendations Home with 24/7 Assist,Home Health,SNF Rehab Other Discharge Recommendations depending on progress SNF vs home with 24/7 and HHPT Transportation Needs at Discharge Wheelchair/Cabulance
--- NOTE | 2019-05-20 10:47 | CM.DPC ---
Addendum entered by Isela Green R.N. 05/20/19 12:34: Patient chose to go to the [facility] suites in [place]. Patient has a room reserved there and plans on contacting [facility] to work on being accepted back their. Cm/Rn gave patient [facility] contact information as well as paratransit information for patient. CM/Rn will contact medicaid transport in an hour at 1400 if CM/Rn has not heard from them. Isela Green Rn Original Note: DCP continued: EMR reviewed: CM/Rn met with patient and Dr. Casarez at the bedside during AM rounds. Patient notified that she will be D/C today and stated understanding. CM/RN gave patient list of hotels that have handicap rooms and kitchenettes in [place] and [facility]. Patient stated I will look for a place for tonight. CM/Rn stopped back by patients room and she was looking at trip advisor on her laptop patient stated she is struggling to find a hotel to D/C to but is working on it. Patient notified that she will D/C today either to a hotel with medicaid transport taking her to the hotel or to the street. Patient was not happy with that news but did state understanding. CM/RN spoke to Jeb Vieira who is working on getting patient some sweats to D/C from the hospital in and should have them by early afternoon. CM/Rn will stop back by patients room in an hour to check on hotel progress. CM/Rn will also call [facility] and community service family service caseworker Sera bledsoe at [phone]. Isela Green RN
--- NOTE | 2019-05-20 14:12 | PC.NURSE ---
Day shift: Pt going to hotel in [place] today. [facility] will take her. Pt has her own WC. She was living at a SNF prior to this hospital admission. She then went to a hotel and couldn't take care of herself and ended up here at [facility]. Paperwork signed and all questions answered. Pt has her meds from pharmacy in that cardboard box. Will write another note when Pt has left the hospital.
--- NOTE | 2019-05-20 15:12 | PC.NURSE ---
Day shift: Pt dressed in donated clothes and on her way to hotel via [facility]. Pt in good spirits. Has all her personal belongings. Off unit at approx 1510.
--- NOTE | 2019-05-21 21:40 | PM.PN.1 ---
Subjective Subjective Date Patient Seen: 05/20/19 Time Patient Seen: 10:00 Interval history: As per Dr. Conklin, Patient is a 69-year-old female brought to emergency department by medics due to complaints of weakness, fatigue and dysuria. For past 3 days she has had symptoms of urinary urgency, frequency and burning discomfort. She has not had UTI in years. Patient has been very weak with decreased p.o. intake. On ER evaluation vitals were stable except mild tachycardic with heart rate in 90s and mild elevated blood pressure, normal labs except for abnormal urinalysis consistent with UTI. Additional potentially relevant history patient was living at [facility] living [facility] and forced to move out this past weekend due to inability to pay her rent. This past week she has been living at the [facility] where she has a handicap room with a kitchenette. Patient has baseline impaired mobility and gets around in manual wheelchair and sometimes uses a walker. She states she has neuropathy and radiculopathy for which she sees Dr. Cifuentes for neurology. Exam Vital Signs (past 8 hours): Oxygen Delivery Method Room Air Oxygen Flow Rate 0 Narrative Exam Narrative: GENERAL: Patient seen in hospital room where she appears alert cooperative and in no acute distress HEAD: Atraumatic. Normocephalic. EYES: Pupils equal, round and reactive. Extraocular motions intact. No scleral icterus. No injection or drainage. OROPHARYNX: Unremarkable NECK: Trachea midline. No JVD or lymphadenopathy. CARDIOVASCULAR: Regular rate and rhythm without murmurs, gallops, or rubs. RESPIRATORY: Clear to auscultation bilaterally. GASTROINTESTINAL: Abdomen nondistended, soft, non-tender. No hepato-splenomegaly, or palpable masses. EXTREMITIES: No edema. NEUROLOGICAL: Alert,speech is intact, normal bilateral upper and lower extremity strength SKIN: warm, dry, no rash Objective Labs Result Diagrams: 05/17/19 11:10 05/17/19 11:10
--- NOTE | 2019-05-21 21:43 | P.DS_ITS ---
History of Present Illness History of Present Illness Date Patient Seen: 05/20/19 Time Patient Seen: 13:30 Chief complaint: Urogenital-Female Narrative: As per Dr. Conklin, Patient is a 69-year-old female brought to emergency department by medics due to complaints of weakness, fatigue and dysuria. For past 3 days she has had symptoms of urinary urgency, frequency and burning discomfort. She has not had UTI in years. Patient has been very weak with decreased p.o. intake. On ER evaluation vitals were stable except mild tachycardic with heart rate in 90s and mild elevated blood pressure, normal labs except for abnormal urinalysis consistent with UTI. Additional potentially relevant history patient was living at [facility] living [facility] and forced to move out this past weekend due to inability to pay her rent. This past week she has been living at the [facility] where she has a handicap room with a kitchenette. Patient has baseline impaired mobility and gets around in manual wheelchair and sometimes uses a walker. She states she has neuropathy and radiculopathy for which she sees Dr. Cifuentes for neurology. Discharge Providers Provider Date of admission: 05/17/19 12:24 Discharge Date: 05/20/19 Primary care physician: Ora Ocampo Consults: 05/18/19 08:07 Consult to ATHLETIC TRAINER - [employer] Routine Comment: 05/18/19 08:41 Consult to Physical Therapy Evaluate & Treat Comment: Physician Instructions: Evaluate and Treat 05/18/19 10:18 Consult to Occupational Therapy Evaluate & Treat Comment: Physician Instructions: Evaluate and treat Discharge provider: Marcos Casarez DO Summary Hospital Course Discharge Diagnosis: 1. Acute urinary tract infection, present on admission, resolved 2. Hypertension, chronic, stable 3. Neuropathy, chronic, stable 4. Headache, chronic 5. Debility Hospital Course: Patient admitted to observation services for UTI and IV hydration. She was long-term resident of [facility] assisted living but forced out last weekend due to nonpayment of rent and had moved into hotel but found covered in stool and feces and unable to take care of self. Case management attempted other options but patient ultimately discharged home to [facility] in a hotel. She was adequately treated for UTI during her hospital stay and no other changes were made to her chronic medications. Exam Vital Signs (past 8 hours): Oxygen Delivery Method Room Air Oxygen Flow Rate 0 Narrative Exam Narrative: GENERAL: Patient seen in hospital room where she appears alert cooperative and in no acute distress HEAD: Atraumatic. Normocephalic. EYES: Pupils equal, round and reactive. Extraocular motions intact. No scleral icterus. No injection or drainage. OROPHARYNX: Unremarkable NECK: Trachea midline. No JVD or lymphadenopathy. CARDIOVASCULAR: Regular rate and rhythm without murmurs, gallops, or rubs. RESPIRATORY: Clear to auscultation bilaterally. GASTROINTESTINAL: Abdomen nondistended, soft, non-tender. No hepato- splenomegaly, or palpable masses. EXTREMITIES: No edema. NEUROLOGICAL: Alert, well oriented, speech is intact, normal bilateral upper and lower extremity strength SKIN: warm, dry, no rash Objective Labs Result Diagrams: 05/17/19 11:10 05/17/19 11:10 Discharge Plan Discharge Plan Patient Disposition: Home Discharge comment: Your admitted to the hospital with a urinary tract infection which you received adequate treatment for. Discharge orders & Medications Prescriptions: Continued gabapentin 600 mg Tablet 600 mg PO TID RF: 0 aspirin 81 mg Tablet,Delayed Release (Dr/Ec) 81 mg PO DAILY RF: 0 citalopram 20 mg Tablet 20 mg PO DAILY RF: 0 amlodipine 10 mg Tablet 10 mg PO DAILY RF: 0 celecoxib [Celebrex] 100 mg Capsule 100 mg PO DAILY RF: 0 lisinopril 40 mg Tablet 40 mg PO DAILY RF: 0 alpha lipoic acid 300 mg Capsule 300 mg PO BEDTIME RF: 0 Discontinued potassium chloride 40 mEq/15 mL Liquid 20 meq PO DAILY RF: 0 Follow up/Referrals: Ora Ocampo [Primary Care Provider] - Diet/Activity/Treatments Diet: Diet as Tolerated and Low-sodium Activity: As tolerated Visit Report/Discharge Packet Instructions: Urinary Tract Infection, DI for Urinary Tract Infection (UTI), How to Prevent Falls Discharge Data Primary Care Provider: Ora Ocampo Attending Provider: Armando Mccoy Admit Date/Time: 05/17/19 12:24 Discharges patient from system. Discharge Date/Time: 05/20/19 15:16
== END 2019-05-20 15:16 | disposition home or self-care (01) ==
LOC: ED 12:17 → AC 12:25
PROVIDERS: Admitting Provider Internal Medicine; Emergency Provider Emergency Medicine; PCP Family Medicine; Referring Provider Emergency Medicine; Visit Provider Internal Medicine
DX: N39.0 Urinary tract infection, site not specified (principal); R53.1 Weakness; I10 Essential (primary) hypertension; G62.9 Polyneuropathy, unspecified
CPT/HCPCS: 36415; 71045; 80053; 81001; 82550; 82553; 83605; 83735; 83880; 84145; 84484; 85025; 87040; 87077; 87086; 87186; 87502; 93005; 96361; 96365; 96366; 97162; 97165; 97530; 97535; 99284; G0378; J1956